=== PATIENT | male | born 1945 | race Caucasian/White ===

== ENCOUNTER 2017-06-02 20:02 | Inpatient (IN) | payer MEDICARE ==
[~2017-06-02] VITALS: Ht 175.3 cm; Wt 153.1 kg
[~2017-06-02 20:02] MED LIST: AMLO1TAB15 PO; AMLO25PO MC; ASPI-484 PO; CANA300T PO; CIPR500T86 PO; CLOP75TA52 PO; DULO60CA7 PO; FURO-81 PO; GLIM2TAB2 PO; INSU100C SQ; INSU100V13 SQ; LEVO750T25 PO; LISI-410 PO; METO-236 PO; NAPR1TAB25 PO; POTA20TA14 PO; ROSU20TA PO; SENN-25 PO; SITA1TAB7 PO; TRAM50TA PO; VORT10TA2 PO; ZOLP12.52 PO
[2017-06-02 20:15] VITALS: BP 114/74
--- NOTE | 2017-06-02 20:33 | ER.PDOC ---
General Chief Complaint: Flank Pain Stated Complaint: VOMITING, flank pain Time seen by MD: 20:30 Source: patient, family Exam Limitations: no limitations History of Present Illness Initial Comments 71 year old white male with history of kidney stone comes in with right sided flank pain. Started around two hours prior to consult with nausea. Right flank in location with radiation to right anterior abdominal wall. No groin radiation. Pain reminds him of previous kidney stone in the past. No fever, no hematuria Severity/Quality: moderate (09/29) Radiation: RLQ Associated Symptoms: nausea/vomiting Exacerbated by: nothing Relieved By: nothing Allergies: Coded Allergies: No Known Allergies (Unverified , 09/23/16) Home Meds Active Scripts Levofloxacin (LEVAQUIN) 750 Mg Tablet, 1 TAB PO DAILY for 5 Days, #5 TAB 0 Refills Prov:LOIDA MENEZES APRN,ROLL MACHINE OPERATOR 04/17/17 Tramadol Hcl (TRAMADOL HCL) 50 Mg Tablet, 50 MG PO Q6 Y for PAIN, #20 TABLET Prov:TAM VARGAS MD 08/15/16 Potassium Chloride (POTASSIUM CHLORIDE) 20 Meq Tab.er.prt, 1 TAB PO DAILY, #30 TAB 4 Refills Prov:RORY MANNING MD 08/01/16 Furosemide (LASIX) 20 Mg Tablet, 40 MG PO DAILY, #30 4 Refills Prov:RORY MANNING MD 08/01/16 Reported Medications Clopidogrel Bisulfate (PLAVIX) 75 Mg Tablet, 1 TAB PO DAILY, #30 TAB 4 Refills 09/26/16 Aspirin (ASPIR 81) 81 Mg Tablet.dr, 1 TAB PO DAILY, #30 TAB 5 Refills 09/26/16 Zolpidem Tartrate (AMBIEN CR) 12.5 Mg Tab.mphase, 1 TAB PO HS, #30 TAB 1 Refill 08/14/16 Vortioxetine Hydrobromide (Trintellix) 10 Mg Tablet, 10 MG PO HS, TABLET 08/14/16 Amlodipine/Valsartan (EXFORGE 10-320 MG TABLET) 1 Each Tablet, 1 TAB PO DAILY, # 30 TAB 5 Refills 08/14/16 Metoprolol Succinate (METOPROLOL SUCCINATE) 25 Mg Tab.er.24h, 1 TAB PO DAILY, # 30 TAB 5 Refills 08/14/16 Insulin Detemir (LEVEMIR) 100 Unit/1 Ml Vial, 50 UNIT SQ HS, VIAL 07/12/16 Insulin Lispro (HUMALOG) 100 Unit/1 Ml Cartridge, 10 UNIT SQ TIDM, CARTRIDGE 07/12/16 Sennosides/Docusate Sodium (NIKOLAY-COLACE TABLET) 1 Each Tablet, 2 EACH PO HS, TABLET 07/12/16 Rosuvastatin 20MG (CRESTOR 20MG) 20 Mg Tablet, 1 TAB PO HS, #30 TAB 5 Refills 07/12/16 Duloxetine Hcl (CYMBALTA) 60 Mg Capsule.dr, 1 CAP PO DAILY, #90 CAP 3 Refills 07/12/16 Glimepiride (GLIMEPIRIDE) 2 Mg Tablet, 1 TAB PO DAILY, #30 TAB 5 Refills 07/12/16 Sitagliptin Phos/Metformin Hcl (JANUMET 50-500 MG TABLET) 1 Each Tablet, 1 TAB PO DAILY, #60 TAB 5 Refills 07/12/16 Vital Signs First Vital Signs Date Time Temp Pulse Resp B/P (MAP) Pulse Ox O2 Delivery O2 Flow Rate FiO2 04/16/17 09:32 85 06/02/17 20:05 97.6 18 98 06/02/17 20:15 114/74 (87) Room Air Last Vital Signs Date Time Temp Pulse Resp B/P (MAP) Pulse Ox O2 Delivery O2 Flow Rate FiO2 06/02/17 20:15 97.6 75 18 114/74 (87) 98 Room Air Past Medical History Medical History: cardiac problems, congestive heart failure, diabetes, GERD Surgical History: knee, other Social History Smoking: non-smoker Alcohol Use: none Drug Use: none Constitutional: no symptoms reported EENTM: no symptoms reported Respiratory: shortness of breath, SOB with exertion Cardiovascular: no symptoms reported Gastrointestinal: see HPI Genitourinary: see HPI Musculoskeletal: no symptoms reported Skin: no symptoms reported Psychiatric/Neurological: no symptoms reported Endocrine: no symptoms reported Hematologic/Lymphatic: no symptoms reported Physical Exam General Appearance: No Apparent Distress, WD/WN HEENT: PERRL/EOMI, Normal ENT Inspection, TMs Normal, Pharynx Normal Neck: Non-Tender, Full Range of Motion, Supple, Normal Inspection Respiratory: chest non-tender, lungs clear, normal breath sounds, no respiratory distress, no accessory muscle use Cardiovascular: Normal Peripheral Pulses, Regular Rate, Rhythm, No Gallop, No JVD, No Murmur Gastrointestinal: Normal Bowel Sounds, Non Tender, Soft Back: Normal Inspection, No CVA Tenderness, No Vertebral Tenderness Extremities: Swelling Neurologic/Psychiatric: fruit culler II-XII NML as Tested, No Motor/Sensory Deficits, Alert, Normal Mood/Affect, Oriented x 3 Skin: Normal Color, Warm/Dry Lymphatic: No Adenopathy Progress Progress CT scan results reviewed with patient Consulted Dr. Vargas Recommend admission to hospitalist service. Course Blood Pressure Systolic: 114 Blood Pressure Diastolic: 74 Blood Pressure Mean: 87 Departure Time of Disposition: 22:50 Disposition: 09 ADMITTED INPATIENT Impression: Primary Impression: Pneumonia Additional Impression: Calculus of kidney Condition: Stable Referrals: SHANNEN GARCÍA MD (PCP) PRIMARY CARE PROVIDER Comments Admit to floor Duration or Time Spent with Pa: 45 Problem Qualifiers Primary Impression: Pneumonia Pneumonia type: due to unspecified organism Laterality: right Lung location : lower lobe of lung Qualified Codes: J18.1 - Lobar pneumonia, unspecified organism MALIKA STEVE MD Jun 02, 2017 20:33
[2017-06-02 20:40] LABS: BASOPHIL % 0.2 % (0.0-0.2); EOSINOPHIL # 0.1 10^3/uL (0.0-0.2); EOSINOPHIL % 0.9 % (0.0-5.0); HEMOGLOBIN 12.5 g/dL (13.9-16.3); LYMPHOCYTES # 0.8 10^3/uL (1.0-4.8); LYMPHOCYTES % 6.5 % (24.0-44.0); MEAN CELL HGB 25.2 pg (26-34); MEAN CELL HGB CONCENTRATION 31.7 g/dL (33-37); MEAN CORP VOLUME 79.4 fL (78-100); MEAN PLATELET VOLUME 8.8 fL (7.8-11.0); MONOCYTES # 0.9 10^3/uL (0.3-0.8); MONOCYTES % 6.7 % (5.0-12.0); NEUTROPHILS % 84.8 % (41.0-85.0); RED CELL DISTRIBUTION WIDTH 15.7 % (11.5-14.5); WHITE BLOOD CELL 12.9 10^3/uL (4.5-11.0)
[2017-06-02 20:56] LABS: CALCIUM 8.5 mg/dL (8.4-10.5); CARBON DIOXIDE 27.3 mmol/L (20.0-32)
[2017-06-02 21:10] VITALS: BP 134/68
--- NOTE | 2017-06-02 21:13 | DIREP ---
PROCEDURE:CT ABDOMEN/PELVIS W/O CONTRAST COMPARISON:[facility], CT, CT ABD/PELVIS W/O, 07/11/2016, 01:08 PM. INDICATIONS:kidney stone TECHNIQUE:Axial images were created through the abdomen and pelvis without intravenous contrast material. No oral contrast was administered. The lack of oral contrast limits assessment of the bowel Sagittal and coronal reconstructions were performed from source images. FINDINGS: LUNG BASES:Consolidative airspace disease in the right lung base with large right pleural effusion. Small left effusion. Findings compatible with right basilar pneumonia. LIVER:Nodular contour compatible with cirrhosis. BILIARY:Gallbladder is distended. No evidence of acute cholecystitis. PANCREAS:Normal. No lesion, fluid collection, ductal dilatation, or atrophy. SPLEEN:Mild splenomegaly ADRENALS:Normal. No mass or enlargement. URINARY TRACT:Mild perinephric fat stranding with moderate right hydronephrosis and hydroureter. Nonobstructing caliceal calculi in the right kidney of measuring up to 8 mm diameter. Moderate hydronephrosis is secondary to obstructing 5 mm stone in the distal right ureter. Left renal cyst noted.. No left-sided hydronephrosis. AORTA/VASCULAR:Mild atherosclerosis without aneurysm RETROPERITONEUM:Prominent periaortic lymph node. No mass or definite adenopathy. BOWEL/MESENTERY:Normal. There is no intestinal obstruction, free fluid, free air or mesenteric inflammatory changes. Enlarged upper abdominal lymph nodes, measuring up to 2 cm short axis. Limited assessment of the lymph nodes given lack of IV contrast. ABDOMINAL WALL:Cellulitis versus anasarca of the pannus. Multiple defects in the anterior abdominal wall, without evidence of incarcerated bowel obstruction.. PELVIC ORGANS:Limited assessment due to metallic scatter artifact from bilateral hip prosthetics. BONES:Bilateral hip arthroplasties and multilevel advanced degenerative joint disease. OTHER:Negative. CONCLUSION: 1. Moderate left hydronephrosis and hydroureter with obstructing 5 mm stone in the distal left ureter. 2. Advanced degenerative joint disease of the skeletal structures. 3. Cirrhosis without focal mass lesion. 4. Right basilar pneumonia and consolidation. 5. Large right and small left pleural effusions 6. Cellulitis versus anasarca of the patient's pannus Dictated by: Rafael Huffman DO on 06/02/2017 at 09:03 PM
[2017-06-02] MEDS ORDERED: TORADOL IV STA (21:27)
[2017-06-02] MEDS ORDERED: ROCEPHIN 1,000 MG in NS 100ML 100 ML IV STA (21:30)
[2017-06-02] MEDS ORDERED: NS 100ML 100 ML IV ONE (21:34)
[2017-06-02] MEDS ORDERED: TORADOL ONE (21:35)
[2017-06-02] MEDS ORDERED: ROCEPHIN ONE (21:35)
[2017-06-02 21:57] LABS: BILIRUBIN,URINE NEGATIVE (NEGATIVE); UROBILINOGEN,URINE NORMAL (NEGATIVE)
--- NOTE | 2017-06-02 21:59 | DIREP ---
PROCEDURE:CHEST 1 VIEW COMPARISON:[facility], CR, XRAY CHEST SINGLE VW, 04/15/2017, 01:22 PM. INDICATIONS:pneumonia FINDINGS: LUNGS/PLEURA:There is a moderate size right pleural effusion with infiltrate in the right base. A minimal left pleural effusion is seen. VASCULATURE:The pulmonary vascular markings are increased. CARDIAC:Moderate cardiomegaly is stable. MEDIASTINUM:Normal. No visible mass or adenopathy. BONES:Post surgical changes are seen with a left shoulder arthroplasty. OTHER:Negative. CONCLUSION:Moderate cardiomegaly with mild pulmonary vascular congestion. Infiltrate is seen in the right base with a moderate size right pleural effusion and minimal left pleural effusion. Dictated by: Kyrie Adorno M.D. on 06/02/2017 at 09:56 PM
[2017-06-02 22:06] LABS: APPEARANCE,URINE HAZY (CLEAR); UA COLOR YELLOW (YELLOW)
--- NOTE | 2017-06-02 22:25 | PCM.EKG ---
[facility] Test Date: 2017-06-02 Test Time: 20:12:00 Pat Name: ELLE ACIN Department: Room: Gender: M Draw Tender: TAJ : 1945 Requested By: MALIKA STEVE Order Number: [id number] Reading MD: Measurements Intervals [place] Rate: 67 P: 22 NM: 200 QRS: 32 QRSD: 108 T: 62 QT: 450 QTc: 475 Interpretive Statements Normal sinus rhythm Normal ECG Compared to ECG 04/15/2017 13:22:39 No significant changes Please click the below link to view image of tracing.
[2017-06-02 22:30] VITALS: BP 122/64
--- NOTE | 2017-06-02 22:40 | NUR ---
DR. RODRIGUEZ EPD ON PHONE WITH DR. RODRIGUEZ FOR ADMISSION
[2017-06-02] MEDS ORDERED: NS 250ML 250 ML IV ONE (23:00)
[2017-06-02] MEDS ORDERED: ZITHROMAX 500 MG in NS 250ML 250 ML IV STA (23:00)
[2017-06-02] MEDS ORDERED: VORT20TA2 PO (23:47)
[2017-06-03 00:01] VITALS: BP 155/70
[2017-06-03] MEDS ORDERED: ULTRAM PO PRN (01:30)
[2017-06-03] MEDS ORDERED: SUBLIMAZE IV PRN (02:00)
[2017-06-03] MEDS ORDERED: NORCO 5MG PO PRN (02:00)
[2017-06-03] MEDS ORDERED: ZOFRAN IV PRN (02:00)
--- NOTE | 2017-06-03 02:00 | NUR ---
patient stated that he was hurting earlier , to right flank area medication down stairs has took all pain away at this time , denies any difficulty with voiding, stated earlier today nausea ,but that is gone now, Addendum: 06/03/17 at 0203 by Rosa Young RN RN Amended: Links added.
[2017-06-03 04:23] VITALS: BP 150/79
--- NOTE | 2017-06-03 06:00 | NUR ---
PT BLOOD SUGAR WAS 70 GAVE ORANGE JUICE AND PEANUTBUTTER AND GRAM CRACKERS. DENIES PAIN AT THIS TIME.
--- NOTE | 2017-06-03 06:52 | NUR ---
REPORT RECEIVED REPORT FROM MARCOS CHIU. ASSUMED CARE FOR PATIENT AT THIS TIME.
[2017-06-03 07:16] VITALS: BP 148/55
[2017-06-03] MEDS: HUMALOG SQ SCH ×3 (08:00→17:07)
[2017-06-03] MEDS: TRADJENTA PO SCH (08:51)
[2017-06-03] MEDS: AMARYL PO SCH (08:53)
[2017-06-03] MEDS: LASIX PO SCH (08:59)
[2017-06-03] MEDS: DIOVAN PO SCH (08:59)
[2017-06-03] MEDS: NORVASC PO SCH (09:00)
[2017-06-03] MEDS: PLAVIX PO SCH (09:00)
[2017-06-03] MEDS: TOPROL XL PO SCH (09:00)
[2017-06-03] MEDS: KLOR-CON 10 PO SCH (09:00)
[2017-06-03] MEDS: ASPIRIN EC PO SCH (09:00)
[2017-06-03] MEDS: GLUCOPHAGE XR PO SCH (09:00)
--- NOTE | 2017-06-03 10:38 | NUR ---
STATUS PATIENTS SPOUSE AT BEDSIDE. PATIENT RESTING PEACEFULLY WITH EYES CLOSED. NO S/S OF RESPIRATORY DISTRESS. RESPIRATIONS EQUAL, NON-LABORED. NO NEEDS VOICED AT THIS TIME, WILL CONTINUE TO MONITOR PATIENT.
[2017-06-03 11:48] VITALS: BP 147/67
--- NOTE | 2017-06-03 13:30 | NUR ---
DISCHARGE PLAN CM VISITED WITH PATIENT'S SIGNIFICANT OTHER AND DAUGHTER IN LAW ABOUT DISCHARGE PLAN AND NEEDS. PATIENT LIVES AT HOME WITH HIS SIGNIFICANT OTHER. PATIENT CURRENTLY HAS AN ADVOCATE NURSE THROUGH [facility]. HOME O2 AND CPAP ALREADY IN PLACE THROUGH [facility]. PATIENT HAS A WALKER AND A SHOWER CHAIR AT HOME. FAMILY STATED THAT THE PATIENT IS HAVING TROUBLE GETTING OUT OF BED AND WOULD LIKE SOME DME THAT COULD HELP WITH THAT. CASE MANAGEMENT REACHED OUT TO MARIYA KENNEDY PT AND KAREEM AT [facility] TO ASSIST IN FINDING APPROPRIATE DME. DISCHARGE GOAL IS TO DISCHARGE BACK HOME WITH SIGNIFICANT OTHER. WILL CONTINUE TO MONITOR DISCHARGE NEEDS.
[2017-06-03 16:00] VITALS: BP 147/60
[2017-06-03 20:32] VITALS: BP 159/77
[2017-06-03] MEDS ORDERED: AMBIEN PO SCH (21:00)
[2017-06-03] MEDS: LIPITOR PO SCH (21:13)
[2017-06-03] MEDS: AMBIEN PO SCH (21:13)
[2017-06-03] MEDS: LANTUS SQ SCH (21:16)
[2017-06-03] MEDS ORDERED: TRINTELLIX PO ONE (21:28)
[2017-06-03] MEDS: TRINTELLIX PO SCH (21:51)
[2017-06-04] VITALS: BP 187/88
[2017-06-04 05:27] LABS: BASOPHIL % 0.2 % (0.0-0.2); EOSINOPHIL # 0.2 10^3/uL (0.0-0.2); EOSINOPHIL % 2.3 % (0.0-5.0); HEMOGLOBIN 11.9 g/dL (13.9-16.3); LYMPHOCYTES # 1.7 10^3/uL (1.0-4.8); LYMPHOCYTES % 16.7 % (24.0-44.0); MEAN CELL HGB 25.1 pg (26-34); MEAN CELL HGB CONCENTRATION 31.2 g/dL (33-37); MEAN CORP VOLUME 80.4 fL (78-100); MEAN PLATELET VOLUME 9.3 fL (7.8-11.0); MONOCYTES % 9.5 % (5.0-12.0); NEUTROPHIL # 7.2 10^3/uL (1.8-7.7); NEUTROPHILS % 70.5 % (41.0-85.0); RED CELL DISTRIBUTION WIDTH 15.8 % (11.5-14.5); WHITE BLOOD CELL 10.2 10^3/uL (4.5-11.0)
[2017-06-04 05:50] LABS: CARBON DIOXIDE 28.8 mmol/L (20.0-32)
[2017-06-04 05:55] VITALS: BP 173/71
[2017-06-04] MEDS: HUMALOG SQ SCH ×3 (08:00→18:00)
[2017-06-04 08:27] VITALS: BP 171/74
[2017-06-04] MEDS: TOPROL XL PO SCH (08:34)
[2017-06-04] MEDS: DIOVAN PO SCH (08:34)
[2017-06-04] MEDS: ASPIRIN EC PO SCH (08:35)
[2017-06-04] MEDS: NORVASC PO SCH (08:35)
[2017-06-04] MEDS: PLAVIX PO SCH (08:35)
[2017-06-04] MEDS: LASIX PO SCH (08:35)
[2017-06-04] MEDS: KLOR-CON 10 PO SCH (08:36)
[2017-06-04] MEDS: TRADJENTA PO SCH (08:36)
[2017-06-04] MEDS: GLUCOPHAGE XR PO SCH (09:00)
[2017-06-04] MEDS: AMARYL PO SCH (09:00)
[2017-06-04 11:35] VITALS: BP 156/66
[2017-06-04 15:21] VITALS: BP 152/63
[2017-06-04] MEDS ORDERED: LEVAQUIN 100 ML IV ONE (15:30)
[2017-06-04 20:00] VITALS: BP 170/77
[2017-06-04] MEDS: LANTUS SQ SCH (21:24)
[2017-06-04] MEDS: AMBIEN PO SCH (21:24)
[2017-06-04] MEDS: LIPITOR PO SCH (21:25)
[2017-06-04] MEDS: TRINTELLIX PO SCH (21:25)
--- NOTE | 2017-06-04 21:45 | NUR ---
insulin pt refused the 50 units of lantus states that he takes 25 units when his blood glucose is below 200. pt given the 25 units.
--- NOTE | 2017-06-04 23:40 | NUR ---
positive blood cultures lab called with results, positive blood cultures, gram pos rods. notified Dr. Mcdonald. no new orders received
[2017-06-05] MEDS: HUMALOG SQ SCH ×3 (08:00→17:37)
[2017-06-05] MEDS: AMARYL PO SCH (08:45)
[2017-06-05] MEDS: GLUCOPHAGE XR PO SCH (08:46)
[2017-06-05] MEDS: PLAVIX PO SCH (08:50)
[2017-06-05] MEDS: KLOR-CON 10 PO SCH (08:50)
[2017-06-05] MEDS: DIOVAN PO SCH (08:51)
[2017-06-05] MEDS: ASPIRIN EC PO SCH (08:51)
[2017-06-05] MEDS: TOPROL XL PO SCH (08:51)
[2017-06-05] MEDS: TRADJENTA PO SCH (08:51)
[2017-06-05] MEDS: NORVASC PO SCH (08:52)
[2017-06-05] MEDS: LASIX PO SCH (08:52)
[2017-06-05 09:11] VITALS: BP 183/82
--- NOTE | 2017-06-05 10:51 | HPH ---
ADMIT DATE: 06/03/2017 CHIEF COMPLAINT: Vomiting and flank pain. HISTORY OF PRESENT ILLNESS: The patient is a morbidly obese 71-year-old gentleman with past medical history significant for diabetes mellitus type 2, hypertension, coronary artery disease, congestive heart failure, diastolic dysfunction, GERD, obstructive sleep apnea, prior history of nephrolithiasis. He presented to the ER with complaints of right flank pain, nausea, vomiting. He also had some shortness of breath. Symptoms started about 2 hours prior to presentation to ER. Right flank pain was in the right anterior wall. He has had prior history of kidney stones. He states the pain did feel very much like a prior kidney stone. He denied any blood noted in the urine. He has had prior history of renal stones and urologic procedures performed. Workup in the ER did reveal a 5 mm stone with some obstructive uropathy. Urology was consulted. PAST MEDICAL HISTORY: Includes hypertension, coronary artery disease, diabetes mellitus type 2, hyperlipidemia, morbid obesity, obstructive sleep apnea, congestive heart failure and diastolic dysfunction. PAST SURGICAL HISTORY: He has had PTCA with stents placed, hip surgery, knee surgery and shoulder surgery. ALLERGIES: NO KNOWN DRUG ALLERGIES. CURRENT HOME MEDICATIONS: List includes amlodipine-valsartan 10/320 mg daily, aspirin 81 mg daily, Plavix 75 mg daily, Lasix 40 mg daily, glimepiride 2 mg daily, Levemir 50 units at night, premeal insulin, metoprolol succinate 25 mg daily, potassium 20 mEq daily, Crestor 20 mg daily, Janumet 50/500 mg daily, tramadol p.r.n. for pain, Trintellix 20 mg at night and Ambien as needed for insomnia. SOCIAL HISTORY: Lives at home. Denies any current alcohol, tobacco or illicit drug use history. FAMILY HISTORY: Negative for early coronary artery disease or diabetes. REVIEW OF SYSTEMS: CARDIAC: Denies chest pain, some shortness of breath and dyspnea on exertion. PULMONARY: Mild cough, nonproductive. No pleuritic chest pain. GASTROINTESTINAL: Positive nausea and vomiting. No diarrhea or constipation. All else negative in 10 point review of system except as in HPI. PHYSICAL EXAMINATION: VITAL SIGNS: Upon arrival to the ER, height 175.2 cm, weight 154.7 kilograms, temperature 97.6, pulse 75, respiratory rate 18, blood pressure 114/74 and O2 saturation 98% on room air and BMI 50.4. GENERAL: He is alert, in no acute distress at time of exam. Morbidly obese gentleman. HEENT: Pupils equal, round, reactive to light. Sclerae are anicteric. Oropharynx is clear. Mucous membranes are moist. NECK: Supple, no lymphadenopathy. CARDIOVASCULAR: At time of exam was regular rate and rhythm. LUNGS: Clear bilaterally. Decreased at bases, right greater than left. ABDOMEN: Soft, obese. Bowel sounds are present. Nontender to palpation. EXTREMITIES: No cyanosis, clubbing. He has trace lower extremity edema. NEUROLOGIC: Grossly nonfocal. LABORATORY DATA: CBC: White count 12.9, hemoglobin 12.5 and platelets 200. Differential: 85% neutrophils, 6% lymphocytes, 7% monocytes. Sodium is 143, potassium 3.4, chloride 107, CO2 is 27, BUN 19, creatinine 1.2, glucose is 144, calcium is 8.5, total bilirubin 0.7, AST 17, ALT is 10, alkaline phosphatase 74, total protein 6.2, albumin 2.5, PT of 10.4, PTT 27.1. UA, pH is 6.5, specific gravity 1.010, 500 mg/dL protein, all else is essentially negative. Lactate of 1.3. IMAGING STUDIES: Chest x-ray performed in the Emergency Room did reveal right basilar infiltrate with moderate size right pleural effusion. Abdomen and pelvis CT did reveal a right base infiltrate, moderate left hydronephrosis and hydroureter, large right and small left pleural effusion with some edema in his pannus. ASSESSMENT AND PLAN: The patient is a 71-year-old man here with nephrolithiasis with hydroureter, hydronephrosis with a 5 mm stone on the left with right basilar infiltrate with community-acquired pneumonia, obstructive sleep apnea with acute hypoxemic respiratory failure and multiple other medical problems. 1. We will continue IV antibiotics started in the Emergency Room. 2. Oxygen protocol, CPAP at night. 3. Continue his cardiovascular medications. 4. ADA diet, sliding scale insulin, Accu-Cheks a.c. and at bedtime. 5. Appropriate p.r.n. pain and nausea medication. 6. Urology consult. Stone should pass, but we will consult Urology. 7. DVT prophylaxis. Due to possibility of having the urologic procedure, we will hold off on anticoagulation at this point. If he stays in the hospital past that and has a urologic procedure, we will consider SCDs. Early ambulation is encouraged. Time spent on 06/03/2017 is 45 minutes. This plan was discussed with the patient. He is his own decision maker. He does understand and concur with plans. Melvin Mcdonald MD DR: ERNST/madonna JOB# [id number]
[2017-06-05 11:16] VITALS: BP 168/74
--- NOTE | 2017-06-05 12:30 | NUR ---
Pt complains of pain in stomach and states he has not had a bowel movement since 06/02/17. Pt states he just does not feel good. Notified Dr. Mcdonald. New orders received. Adm Lactulose as ordered per Dr. Mcdonald. Will continue to monitor Addendum: 06/05/17 at 1748 by Manolo Mancia LVN-Med Surg SLIP CASTER BS active X4 quadrants
[2017-06-05] MEDS ORDERED: LACT10SO PO (14:43)
[2017-06-05] MEDS ORDERED: LEVO500T51 PO (14:43)
--- NOTE | 2017-06-05 15:01 | NUR ---
Pt states that he had a bowel movement, and that it was medium in size. Pt states that he no longer feels pain and that he feels much better. Pt has no more questions or concerns @ this time. Will continue to monitor
[2017-06-05] MEDS ORDERED: CEPHULAC PO SCH (16:00)
--- NOTE | 2017-06-05 16:02 | NUR ---
Pt complains of generalized pain. States pain is 4/10 and requested his PRN Tramadol. Adm his Tramadol as ordered. Will continue to monitor
--- NOTE | 2017-06-05 18:56 | NUR ---
report received report from offgoing shift
[2017-06-05 20:07] VITALS: BP 183/90
[2017-06-05] MEDS: TRINTELLIX PO SCH (20:45)
[2017-06-05] MEDS: LIPITOR PO SCH (20:45)
[2017-06-05] MEDS: AMBIEN PO SCH (20:46)
[2017-06-05] MEDS: LANTUS SQ SCH (20:48)
[2017-06-06 00:32] VITALS: BP 179/71
--- NOTE | 2017-06-06 02:21 | NUR ---
monitor pt asleep. Pt wearing his CPAP. No s/sx of any distress. Call light placed within reach. Will continue to monitor.
--- NOTE | 2017-06-06 03:03 | PNH ---
DATE: 06/04/2017 SUBJECTIVE: He is feeling a little bit better. He believes his stone has passed. He was seen by Urology who agrees the ureteral stone has passed. No other acute changes. OBJECTIVE: VITAL SIGNS: T-max last 24 hours 99.3, pulse 71, respiratory rate is 19, blood pressure 152/63, O2 saturation 94% on 2 liters. GENERAL: He is alert, in no acute distress at time of exam. HEENT: Pupils equal, round, reactive to light. Sclerae are anicteric. Oropharynx is clear. Mucous membranes are moist. NECK: Supple, no lymphadenopathy. CARDIOVASCULAR: At time of exam was regular rate and rhythm. LUNGS: Decreased at bases bilaterally, right greater than left. ABDOMEN: Soft, obese. Bowel sounds are present. EXTREMITIES: No cyanosis, clubbing or significant edema. NEUROLOGIC: Grossly nonfocal. LABORATORY DATA: Sodium 146, potassium 3.3, chloride 105, CO2 is 29, BUN 22, creatinine 1.23, glucose is 102, calcium is 9.0. CBC: White count 10.2, hemoglobin 11.9 and platelets 232. Differential: 70% neutrophils, 17% lymphocytes, 9% monocytes. ASSESSMENT AND PLAN: The patient is a 71-year-old man here with right basilar community-acquired pneumonia, obstructive sleep apnea on CPAP with acute hypoxemic respiratory failure, anemia due to chronic disease. 1. Continue IV antibiotics. 2. O2 protocol. Wean as tolerated. 3. Continue his cardiovascular medications. 4. Continue ADA diet, sliding scale insulin, Accu-Cheks a.c. and at bedtime. 5. It does not appear there will be any intervention from Urology as the stone has likely passed. We will follow clinically. Time spent on 06/04/2017 is 25 minutes. Melvin Mcdonald MD DR: ERNST/madonna JOB# [id number]
[2017-06-06 05:30] VITALS: BP 148/56
[2017-06-06 06:18] LABS: BASOPHIL % 0.3 % (0.0-0.2); EOSINOPHIL # 0.2 10^3/uL (0.0-0.2); EOSINOPHIL % 2.6 % (0.0-5.0); HEMOGLOBIN 10.8 g/dL (13.9-16.3); LYMPHOCYTES # 1.2 10^3/uL (1.0-4.8); LYMPHOCYTES % 16.3 % (24.0-44.0); MEAN CELL HGB 25.1 pg (26-34); MEAN CELL HGB CONCENTRATION 31.1 g/dL (33-37); MEAN CORP VOLUME 80.7 fL (78-100); MEAN PLATELET VOLUME 9.4 fL (7.8-11.0); MONOCYTES # 0.7 10^3/uL (0.3-0.8); NEUTROPHIL # 5.1 10^3/uL (1.8-7.7); NEUTROPHILS % 70.8 % (41.0-85.0); RED CELL DISTRIBUTION WIDTH 15.5 % (11.5-14.5); WHITE BLOOD CELL 7.2 10^3/uL (4.5-11.0)
--- NOTE | 2017-06-06 06:40 | NUR ---
BEDSIDE REPORT RECEIVED REPORT FROM MICHELLE CORNEJO. ASSUMED CARE FOR PATIENT AT THIS TIME.
--- NOTE | 2017-06-06 06:53 | NUR ---
report report given to o/c shift
[2017-06-06 06:55] LABS: CALCIUM 8.3 mg/dL (8.4-10.5); CARBON DIOXIDE 30.1 mmol/L (20.0-32)
[2017-06-06] MEDS: HUMALOG SQ SCH (08:00)
[2017-06-06 08:12] VITALS: BP 159/80
[2017-06-06] MEDS: NORVASC PO SCH (08:18)
[2017-06-06] MEDS: ASPIRIN EC PO SCH (08:18)
[2017-06-06] MEDS: LASIX PO SCH (08:19)
[2017-06-06] MEDS: DIOVAN PO SCH (08:19)
[2017-06-06] MEDS: KLOR-CON 10 PO SCH (08:19)
[2017-06-06] MEDS: TOPROL XL PO SCH (08:19)
[2017-06-06] MEDS: PLAVIX PO SCH (08:19)
[2017-06-06] MEDS: TRADJENTA PO SCH (08:21)
[2017-06-06] MEDS: GLUCOPHAGE XR PO SCH (08:21)
[2017-06-06] MEDS: AMARYL PO SCH (08:21)
--- NOTE | 2017-06-06 09:50 | NUR ---
AT BEDSIDE TO DISCUSS DISCHARGE PLAN
--- NOTE | 2017-06-06 09:59 | PRM.DC ---
Discharge Summary Date of Discharge: Jun 06, 2017 Reason for Visit: Flank pain Patient History: Alzheimer's disease 33 FATHER, , Age:68 Aneurysm G8 BROTHER, , Age:78 Cerebrovascular disorder 32 MOTHER, , Age:60 Chronic obstructive pulmonary disease G8 SISTER, , Age:73 Congestive heart failure 33 FATHER, , Age:68 G8 BROTHER, , Age:78 Coronary artery disease 33 FATHER, , Age:68 G8 BROTHER, , Age:78 G8 SISTER, , Age:27 Diabetes mellitus 32 MOTHER, , Age:60 G8 BROTHER, , Age:78 19 CHILD Hypertension G8 BROTHER, , Age:78 Hypoglycemia G8 SISTER, , Age:73 Liver failure G8 SISTER, , Age:27 History Present Illness: (1) OSIRIS on CPAP SEVERITY: MODERATE PERSISTENT Status: Chronic ICD Code: G47.33 - Obstructive sleep apnea (adult) (pediatric); Z99.89 - Dependence on other enabling machines and devices SNOMED: 53819288, 394601929 Assessment & Plan: CPAP at night with oxygen supplementation (2) Pneumonia Status: Acute ICD Code: J18.9 - Pneumonia, unspecified organism SNOMED: 313748870 Assessment & Plan: Continue oral antibiotics at home (3) Ureterolithiasis Status: Resolved ICD Code: N20.1 - Calculus of ureter SNOMED: 18878407 (4) DM2 (diabetes mellitus, type 2) Status: Chronic ICD Code: E11.9 - Type 2 diabetes mellitus without complications SNOMED: 56191538 Assessment & Plan: ADA diet, continue current medical management (5) Heart failure SEVERITY: MODERATE PERSISTENT Status: Chronic ICD Code: I50.9 - Heart failure, unspecified SNOMED: 47894161 Assessment & Plan: Continue current medical management General: Alert, Oriented X3, Cooperative, No acute distress HEENT: PERRLA, EOMI Neck: Supple, No JVD Lungs: Clear to auscultation, Normal air movement Heart: Regular rate, Normal S1, Normal S2 Abdomen: Normal bowel sounds, Soft, No tenderness Extremities: No clubbing, No cyanosis Skin: No breakdown Neuro: Normal speech, Strength at 5/5 X4 ext, Cranial nerves 3-12 NL Psych/Mental Status: Mental status NL, Mood NL Results(Labs/Rad) Laboratory Tests Test 06/06/17 05:41 White Blood Count 7.2 10^3/uL Red Blood Count 4.30 10^6/uL Hemoglobin 10.8 g/dL Hematocrit 34.7 % Mean Corpuscular Volume 80.7 fL Mean Corpuscular Hemoglobin 25.1 pg Mean Corpuscular Hemoglobin Concent 31.1 g/dL Red Cell Distribution Width 15.5 % Platelet Count 202 10^3/uL Mean Platelet Volume 9.4 fL Neutrophils (%) (Auto) 70.8 % Lymphocytes (%) (Auto) 16.3 % Monocytes (%) (Auto) 9.0 % Neutrophils # (Auto) 5.1 10^3/uL Lymphocytes # (Auto) 1.2 10^3/uL Monocytes # (Auto) 0.7 10^3/uL Absolute Immature Granulocyte (auto 0.07 10^3 u/L Eosinophils % 2.6 % Basophils % 0.3 % Basophils # 0.0 10^3/uL Eosinophil Count 0.2 10^3/uL Sodium Level 144 mmol/L Potassium Level 3.2 mmol/L Chloride Level 106.0 mmol/L Carbon Dioxide Level 30.1 mmol/L Glucose Level 124 mg/dL Blood Urea Nitrogen 21 mg/dL Creatinine 1.19 mg/dL Calcium Level 8.3 mg/dL Anion Gap 11.1 Estimated GFR () 72.9 BUN/Creatinine Ratio 17.0 Percent Immature Gran (Cell Imm) 1.00 % Scheduled Amlodipine/Valsartan (Exforge 10-320 Mg Tablet), 1 TAB PO DAILY, (Reported) Aspirin (Aspir 81), 1 TAB PO DAILY, (Reported) Clopidogrel Bisulfate (Plavix), 1 TAB PO DAILY, (Reported) Furosemide (Lasix), 40 MG PO DAILY Glimepiride (Glimepiride), 1 TAB PO DAILY, (Reported) Insulin Detemir (Levemir), 50 UNIT SQ HS, (Reported) Insulin Lispro (Humalog), 10 UNIT SQ TIDM, (Reported) Lactulose (Lactulose), 20 GM PO Q4HR Levofloxacin (Levaquin), 1 TAB PO DAILY Levofloxacin (Levaquin), 500 MG PO DAILY24 Metoprolol Succinate (Metoprolol Succinate), 1 TAB PO DAILY, (Reported) Potassium Chloride (Potassium Chloride), 1 TAB PO DAILY Rosuvastatin 20MG (Crestor 20MG), 1 TAB PO HS, (Reported) Sitagliptin Phos/Metformin Hcl (Janumet 50-500 Mg Tablet), 1 TAB PO DAILY, ( Reported) Vortioxetine Hydrobromide (Trintellix), 20 MG PO HS, (Reported) Zolpidem Tartrate (Ambien Cr), 1 TAB PO HS, (Reported) Scheduled PRN Tramadol Hcl (Tramadol Hcl), 50 MG PO Q6 PRN for PAIN Discontinued Medications Duloxetine Hcl (Cymbalta), 1 CAP PO DAILY, (Reported) Discontinued Reason: Discontinue Sennosides/Docusate Sodium (Ladi-Colace Tablet), 2 EACH PO HS, (Reported) Discontinued Reason: Discontinue Vortioxetine Hydrobromide (Trintellix), 10 MG PO HS, (Reported) Discontinued Reason: Discontinue Sepsis Evaluation @ Discharge Course Blood Pressure Systolic: 159 Blood Pressure Diastolic: 80 Blood Pressure Mean: 106 Notes see dictated report Plan Discharge Date: Jun 06, 2017 Dicharge DX: 1. Pneumonia, 2. Ureterolithiasis with hydronephrosis, 3. OSIRIS on CPAP Discharge Disposition: Stable Plan Medications per discharge list CPAP at night Oxygen supplementation with nasal cannula and CPAP at night ADA diet Activity as tolerated Follow up with Dr Doran 1-2 weeks Discharge plans discussed with patient, he is his own decision maker and does understand and concur with plans Time spent 25 minutes Problem Qualifiers (1) Pneumonia: Pneumonia type: due to unspecified organism Laterality: right Lung location : lower lobe of lung Qualified Codes: J18.1 - Lobar pneumonia, unspecified organism (2) DM2 (diabetes mellitus, type 2): Diabetes mellitus fpc insulin use: with terminal makeup operator use Diabetes mellitus complication status: without complication Qualified Codes: E11.9 - Type 2 diabetes mellitus without complications; Z79.4 - jail (current) use of insulin (3) Heart failure: Heart failure type: diastolic ZAHIRA RODRIGUEZ MD Jun 06, 2017 09:58
[2017-06-06 10:03] VITALS: BP 159/80
--- NOTE | 2017-06-06 10:05 | NUR ---
DISCHARGE PATIENT BEING DISCHARGED HOME AT THIS TIME WITH HIS PERSONAL CPAP DEVICE. PATIENT IS STABLE, RESPIRATIONS EVEN, NON-LABORED. PATIENT STATES THAT HIS SPOUSE HELPS WITH HIS CARE AT HOME. DENIES NEEDING ADDITIONAL RESOURCES AT THIS TIME. RELINQUISHED CARE FOR PATIENT.
--- NOTE | 2017-06-07 19:22 | DSH ---
DATE OF DISCHARGE: 06/06/2017 DISPOSITION: Routine discharge home. PRINCIPAL DIAGNOSES AT DISCHARGE: Includes ureterolithiasis with hydronephrosis. OTHER DIAGNOSES: Includes right basilar pneumonia, obstructive sleep apnea, acute on chronic hypoxic respiratory failure and anemia due to chronic disease. BRIEF SUMMARY: The patient was initially admitted on 06/02/2017 with flank pain. Workup revealed he had ureterolithiasis with hydronephrosis with a 5 mm stone. Urology was consulted. Prior to being seen, it was clearly evident the stone had passed. He also had a right basilar pneumonia. He was started on IV antibiotics. He had sleep apnea and he uses CPAP in the hospital and oxygen protocol. Over the next few days, he did improve towards baseline. On day of discharge, he was tolerating diet well. He was back at baseline. Routine discharge home. DISCHARGE MEDICATIONS: He will resume his previous home medications plus lactulose as needed for constipation and Levaquin 500 mg daily for 5 more days. DISCHARGE ACTIVITY: As tolerated. DISCHARGE INSTRUCTIONS: Discharged on CPAP and oxygen as prior to admission. Discharge plans were discussed with the patient. He is his own decision maker. He does understand and concur with plans. Time spent on discharge 25 minutes. Melvin Mcdonald MD DR: ERNST/madonna JOB# [id number]
--- NOTE | 2017-06-08 05:45 | PNH ---
DATE: 06/05/2017 SUBJECTIVE: The patient stated that he felt well. He has not had a bowel movement. There is no other new changes. Due to his concerns of not feeling well, he was given lactulose x 1, had significant bowel movement. No other acute changes overnight. OBJECTIVE: VITAL SIGNS: T-max last 24 hours is 98.7, pulse of 67, respiratory rate is 18, blood pressure 183/90 and O2 saturation 96% on 2 liters nasal cannula. GENERAL: He is alert, in no acute distress at time of exam. Morbidly obese gentleman. HEENT: Pupils equal, round, reactive to light. Sclerae are anicteric. Oropharynx is clear. Mucous membranes are moist. NECK: Supple, no lymphadenopathy. CARDIOVASCULAR: At time of exam is regular rate and rhythm. LUNGS: Clear bilaterally. ABDOMEN: Soft. Bowel sounds are present. Obese, nontender to palpation. EXTREMITIES: No cyanosis, clubbing or significant edema. NEUROLOGIC: Grossly nonfocal. ASSESSMENT AND PLAN: The patient is a 71-year-old man here with resolved nephrolithiasis with obstructive sleep apnea with acute hypoxic respiratory failure with right basilar pneumonia. 1. Continue IV fluids. 2. He received lactulose for catharsis and had a bowel movement. 3. O2 protocol. 4. ADA diet. Time spent with the patient on 06/05/2017 is 25 minutes. Melvin Mcdonald MD DR: ERNST/madonna JOB# [id number]
== END 2017-06-06 10:17 | disposition home or self-care (01) | DRG 693 ==
LOC: ER 20:02 → EDBD 20:02 → MS 23:02 → EDPENDDISDT 06-03 23:40 → EDPENDDISTM 06-03 23:40 → EDPENDDISDT 06-06 10:04 → EDPENDDISTM 06-06 10:04
PROVIDERS: ADMIT Internal Medicine; ATTEND Internal Medicine
PROC: 5A09357 Assistance with Respiratory Ventilation, Less than 24 Consecutive Hours, Continuous Positive Airway Pressure (ICD-10-PCS; principal; 2017-06-03)
PROC: 5A09357 Assistance with Respiratory Ventilation, Less than 24 Consecutive Hours, Continuous Positive Airway Pressure (ICD-10-PCS; 2017-06-04)
PROC: 5A09357 Assistance with Respiratory Ventilation, Less than 24 Consecutive Hours, Continuous Positive Airway Pressure (ICD-10-PCS; 2017-06-05)
PROC: 5A09357 Assistance with Respiratory Ventilation, Less than 24 Consecutive Hours, Continuous Positive Airway Pressure (ICD-10-PCS; 2017-06-06)
DX: N13.2 Hydronephrosis with renal and ureteral calculous obstruction (principal); J96.21 Acute and chronic respiratory failure with hypoxia; J18.9 Pneumonia, unspecified organism; I11.0 Hypertensive heart disease with heart failure; D63.8 Anemia in other chronic diseases classified elsewhere; E11.9 Type 2 diabetes mellitus without complications; E66.01 Morbid (severe) obesity due to excess calories; I50.30 Unspecified diastolic (congestive) heart failure; Z68.43 Body mass index [BMI] 50.0-59.9, adult; G47.33 Obstructive sleep apnea (adult) (pediatric); E78.5 Hyperlipidemia, unspecified; K21.9 Gastro-esophageal reflux disease without esophagitis; I25.10 Atherosclerotic heart disease of native coronary artery without angina pectoris; Z79.2 Long term (current) use of antibiotics; Z79.82 Long term (current) use of aspirin; Z79.4 Long term (current) use of insulin; Z79.899 Other long term (current) drug therapy; Z87.442 Personal history of urinary calculi; Z82.0 Family history of epilepsy and other diseases of the nervous system; Z82.3 Family history of stroke; Z82.5 Family history of asthma and other chronic lower respiratory diseases; Z82.49 Family history of ischemic heart disease and other diseases of the circulatory system; Z83.3 Family history of diabetes mellitus
CPT/HCPCS: 36415; 36600; 71045; 74176; 80048; 80053; 81000; 82948; 83605; 85025; 85610; 85730; 87040; 87086; 93005; 96365; 99285; J0456; J0696; J1815; J1885; J1956; J2405; J3480; J3490; J7050

== ENCOUNTER 2017-07-03 14:28 | Inpatient (IN) | payer MEDICARE ==
[~2017-07-03] VITALS: Ht 175.3 cm; Wt 152.5 kg
[~2017-07-03 14:28] MED LIST changes: +LACT10SO PO; +LEVO500T51 PO; +VORT20TA2 PO
[2017-07-03] MEDS ORDERED: DECADRON IH STA (14:38)
[2017-07-03] MEDS ORDERED: DUONEB 0.5 MG-3 MG/3 ML SOLN IH STA (14:38)
[2017-07-03] MEDS ORDERED: LASIX IV STA (14:38)
[2017-07-03] MEDS ORDERED: SOLU-MEDROL IV STA (14:38)
--- NOTE | 2017-07-03 14:38 | ER.PDOC ---
General Chief Complaint: Requesting Medical Care Stated Complaint: RESPIRATORY DISTRESS Time seen by MD: 15:00 Source: patient History of Present Illness Associated Symptoms: edema Prior symptoms/Treatment: Similar symptoms previous Allergies: Coded Allergies: No Known Allergies (Unverified , 09/23/16) Home Meds Active Scripts Lactulose (LACTULOSE) 10 Gm/15 Ml Solution, 20 GM PO Q4HR for CONSTIPATION for 30 Days, #960 ML Prov:ZAHIRA RODRIGUEZ MD 06/05/17 Levofloxacin (LEVAQUIN) 500 Mg Tablet, 500 MG PO DAILY24 for 5 Days, #5 TABLET Prov:ZAHIRA RODRIGUEZ MD 06/05/17 Tramadol Hcl (TRAMADOL HCL) 50 Mg Tablet, 50 MG PO Q6 Y for PAIN, #20 TABLET Prov:TAM VARGAS MD 08/15/16 Potassium Chloride (POTASSIUM CHLORIDE) 20 Meq Tab.er.prt, 1 TAB PO DAILY, #30 TAB 4 Refills Prov:RORY MANNING MD 08/01/16 Furosemide (LASIX) 20 Mg Tablet, 40 MG PO DAILY, #30 4 Refills Prov:RORY MANNING MD 08/01/16 Reported Medications Vortioxetine Hydrobromide (Trintellix) 20 Mg Tablet, 20 MG PO HS, TABLET 06/02/17 Clopidogrel Bisulfate (PLAVIX) 75 Mg Tablet, 1 TAB PO DAILY, TAB 09/26/16 Aspirin (ASPIR 81) 81 Mg Tablet.dr, 1 TAB PO DAILY, TAB 09/26/16 Zolpidem Tartrate (AMBIEN CR) 12.5 Mg Tab.mphase, 1 TAB PO HS, TAB 08/14/16 Amlodipine/Valsartan (EXFORGE 10-320 MG TABLET) 1 Each Tablet, 1 TAB PO DAILY, TAB 08/14/16 Metoprolol Succinate (METOPROLOL SUCCINATE) 25 Mg Tab.er.24h, 1 TAB PO DAILY, TAB 08/14/16 Insulin Detemir (LEVEMIR) 100 Unit/1 Ml Vial, 50 UNIT SQ HS, VIAL 07/12/16 Insulin Lispro (HUMALOG) 100 Unit/1 Ml Cartridge, 10 UNIT SQ TIDM, CARTRIDGE 07/12/16 Rosuvastatin 20MG (CRESTOR 20MG) 20 Mg Tablet, 1 TAB PO HS, TAB 07/12/16 Glimepiride (GLIMEPIRIDE) 2 Mg Tablet, 1 TAB PO DAILY, TAB 07/12/16 Sitagliptin Phos/Metformin Hcl (JANUMET 50-500 MG TABLET) 1 Each Tablet, 1 TAB PO DAILY, TAB 07/12/16 Past Medical History Medical History: other (CHF) Surgical History: knee, other Family History Significant Family History: no pertinent family hx Social History Smoking: non-smoker Drug Use: none Reviewed Nursing Reviewed: Vital Signs, Abn. 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8-11.0) Neutrophils (%) (Auto) 72.0 % (41.0-85.0) Lymphocytes (%) (Auto) 13.9 % (24.0-44.0) Monocytes (%) (Auto) 10.0 % (5.0-12.0) Neutrophils # (Auto) 8.3 10^3/uL (1.8-7.7) Lymphocytes # (Auto) 1.6 10^3/uL (1.0-4.8) Monocytes # (Auto) 1.2 10^3/uL (0.3-0.8) Absolute Immature Granulocyte (auto 0.16 10^3 u/L (0-2) Eosinophils % 2.4 % (0.0-5.0) Basophils % 0.3 % (0.0-0.2) Basophils # 0.0 10^3/uL (0.0-0.1) Eosinophil Count 0.3 10^3/uL (0.0-0.2) Prothrombin Time 9.9 SEC (9.8-11.9) Prothrombin Time INR (Non-Therap) 1.0 Activated Partial Thromboplast Time 26.3 SEC (24.67-30.72) D-Dimer 1.60 mg/L (0.19-0.49) Sodium Level 143 mmol/L (132-145) Potassium Level 3.5 mmol/L (3.6-5.2) Chloride Level 106.0 mmol/L (96-109) Carbon Dioxide Level 27.3 mmol/L (20.0-32) Anion Gap 13.2 Blood Urea Nitrogen 21 mg/dL (7-18) Creatinine 1.09 mg/dL (0.59-1.40) Estimated GFR () 80.7 (>/=60) BUN/Creatinine Ratio 19.0 Glucose Level 116 mg/dL (70-110) Calcium Level 8.7 mg/dL (8.4-10.5) Total Bilirubin 0.9 mg/dL (0.2-1.0) Aspartate Amino Transf (AST/SGOT) 13 U/L (0-35) Alanine Aminotransferase (ALT/SGPT) 11 U/L (12-78) Alkaline Phosphatase 66 U/L (50-136) Total Creatine Kinase 37 U/L (39-308) Creatine Kinase MB 0.8 ng/mL (0.5-3.6) Troponin I < 0.02 ng/mL (0.00-0.05) Pro-B-Type Natriuretic Peptide 987 pg/mL (0-125) Total Protein 6.2 g/dL (6.4-8.2) Albumin 2.8 g/dL (3.4-5.0) Globulin 3.4 Percent Immature Gran (Cell Imm) 1.40 % (0.00-0.50) Helicobacter pylori Screen NEGATIVE (NEGATIVE) Administered Medications Medications (Trade) Dose Ordered Sig/Kelsi Route PRN Reason Start Time Stop Time Status Last Admin Dose Admin Methylprednisolone Sodium Succinate (Solu-Medrol) 250 mg STAT STAT IV 07/03/17 14:38 07/03/17 14:41 DC 07/03/17 15:28 Albuterol/ Ipratropium (Duoneb 0.5 Mg-3 Mg/3 ml Soln) 3 ml STAT STAT IH 07/03/17 14:38 07/03/17 14:41 DC 07/03/17 15:04 Furosemide (Lasix) 40 mg STAT STAT IV 07/03/17 14:38 07/03/17 14:41 DC 07/03/17 15:28 EKG/XRAY/CT/US EKG: NSR, no ST T wave changes EKG Comments: PAC'S Consult/PCP Time Consult/PCP Called: 16:00 Consult/PCP: DR RODRIGUEZ Departure Time of Disposition: 16:22 Disposition: 09 ADMITTED INPATIENT Impression: Primary Impression: Heart failure Condition: Improved Referrals: SHANNEN GARCÍA MD (PCP) PRIMARY CARE PROVIDER Duration or Time Spent with Pa: 2 HRS GIA OAKES MD Jul 03, 2017 14:38
[2017-07-03 14:41] VITALS: BP 201/102
[2017-07-03 14:46] LABS: BASOPHIL % 0.3 % (0.0-0.2); EOSINOPHIL # 0.3 10^3/uL (0.0-0.2); EOSINOPHIL % 2.4 % (0.0-5.0); HEMOGLOBIN 12.7 g/dL (13.9-16.3); LYMPHOCYTES # 1.6 10^3/uL (1.0-4.8); LYMPHOCYTES % 13.9 % (24.0-44.0); MEAN CELL HGB 25.8 pg (26-34); MEAN CELL HGB CONCENTRATION 32.1 g/dL (33-37); MEAN CORP VOLUME 80.3 fL (78-100); MEAN PLATELET VOLUME 8.9 fL (7.8-11.0); MONOCYTES # 1.2 10^3/uL (0.3-0.8); NEUTROPHIL # 8.3 10^3/uL (1.8-7.7); RED CELL DISTRIBUTION WIDTH 15.5 % (11.5-14.5); WHITE BLOOD CELL 11.6 10^3/uL (4.5-11.0)
--- NOTE | 2017-07-03 14:55 | DIREP ---
PROCEDURE:CHEST 1 VIEW COMPARISON:[facility], CR, XRAY CHEST 2 VWS, 06/11/2017, 03:35 PM. INDICATIONS:dys FINDINGS: LUNGS/PLEURA:Elevation of the right hemidiaphragm is noted consistent with a moderate right pleural effusion. A small left pleural effusion is noted as well. There most likely is compressive atelectasis in the right lung base. VASCULATURE:Pulmonary venous congestion consistent with congestive heart failure is noted. CARDIAC:Moderate cardiomegaly noted. MEDIASTINUM:Normal. No visible mass or adenopathy. BONES:Normal. No fracture or visible bony lesion. OTHER:Negative. CONCLUSION: 1. Cardiomegaly with evidence of congestive heart failure and bilateral pleural effusions (fairly large on the right which is increased in size since 06/11/2017). I believe there is compressive atelectasis in the right lung base. Dictated by: Stanislaw Delaney M.D. on 07/03/2017 at 02:53 PM
[2017-07-03] MEDS ORDERED: DUONEB 0.5 MG-3 MG/3 ML SOLN IH ONE (14:59)
--- NOTE | 2017-07-03 14:59 | PCM.EKG ---
[facility] Test Date: 2017-07-03 Test Time: 14:59:56 Pat Name: ELLE CAIN Department: Room: 330 Gender: M Surgical Asst: BLANCA : 1945 Requested By: GIA OAKES Order Number: [id number] Reading MD: Saji Beaulieu Measurements Intervals [place] Rate: 69 P: 62 W[place]: 182 QRS: 9 QRSD: 88 T: 69 QT: 448 QTc: 480 Interpretive Statements Sinus rhythm with frequent premature ventricular complexes Nonspecific ST and T wave abnormality Prolonged QT Abnormal ECG Compared to ECG 06/02/2017 20:12:00 Ventricular premature complex(es) now present ST (T wave) deviation now present Prolonged QT interval now present Electronically Signed On 07-10-2017 6:20:16 CDT by Saji Beaulieu Please click the below link to view image of tracing.
[2017-07-03] MEDS ORDERED: LASIX ONE (15:13)
[2017-07-03] MEDS ORDERED: SOLU-MEDROL ONE (15:13)
[2017-07-03 15:16] LABS: ALANINE AMINOTRANSFERASE(ML) 11 U/L (12-78); ALKALINE PHOSPHATASE 66 U/L (50-136); ASPARTATE AMINO TRANSFERASE 13 U/L (0-35); CALCIUM 8.7 mg/dL (8.4-10.5); CARBON DIOXIDE 27.3 mmol/L (20.0-32); GLUCOSE 116 mg/dL (70-110)
--- NOTE | 2017-07-03 15:36 | NUR ---
JENNIFER Overton on phone with Dr. Overton
[2017-07-03 15:46] VITALS: BP 188/98
[2017-07-03] MEDS ORDERED: ASPI-484 PO (16:03)
--- NOTE | 2017-07-03 16:06 | NUR ---
pt on unit Pt arrived on unit via wheelchair from ER. Received report and assumed care of pt. Oriented pt to room. Admission completed as charted. Pt denies pain. Vitals WNL. Call light within reach. Family at bedside.
[2017-07-03] MEDS ORDERED: SACU1TAB7 PO ×2 (16:12→16:18)
[2017-07-03] MEDS ORDERED: METO1TAB32 PO (16:18)
[2017-07-03] MEDS ORDERED: INSU100V13 SQ (16:18)
[2017-07-03 16:29] VITALS: BP 186/72
[2017-07-03] MEDS: HUMALOG SQ SCH ×2 (16:55→21:42)
[2017-07-03] MEDS ORDERED: DUONEB 0.5 MG-3 MG/3 ML SOLN IH SCH (18:00)
--- NOTE | 2017-07-03 18:31 | NUR ---
REPORT REPORT RECEIVED FROM TERRY MARTINEZ ASSUMED CARE OF PT
[2017-07-03 19:34] VITALS: BP 151/59
[2017-07-03] MEDS: DUONEB 0.5 MG-3 MG/3 ML SOLN IH SCH (20:58)
--- NOTE | 2017-07-03 22:03 | NUR ---
STATUS PT LYING IN BED WITH EYES CLOSED, RESP EVEN AND NON LABORED. PT WEARING CPAP. NO S/S OF DISTRESS NOTED. WILL CONT TO MONITOR. CALL LIGHT WITHIN REACH. BED LOCKED AND LOW POSITION, SIDE RAILS UP X2.
[2017-07-04 00:08] VITALS: BP 160/76
--- NOTE | 2017-07-04 02:06 | NUR ---
STATUS PT LYING IN BED WITH EYES CLOSED. RESP EVEN AND NON LABORED. CALL LIGHT WITHIN REACH. WILL CONT TO MONITOR. BED LOCKED AND LOW POSITION, SIDE RAILS UP X2.
[2017-07-04 05:31] VITALS: BP 147/73
[2017-07-04] MEDS ORDERED: DEXTROSE 50%-WATER SYRINGE IV PRN (06:00)
[2017-07-04] MEDS ORDERED: ENTRESTO 49 MG-51 MG TABLET PO SCH ×2 (06:00→21:00)
[2017-07-04] MEDS: HUMALOG SQ SCH ×4 (07:30→16:51)
[2017-07-04] MEDS ORDERED: KLOR-CON 10 PO ONE (07:53)
[2017-07-04] MEDS ORDERED: LASIX ONE (07:53)
[2017-07-04] MEDS: LASIX IV SCH (08:05)
[2017-07-04] MEDS: PLAVIX PO SCH (08:05)
[2017-07-04] MEDS: KLOR-CON 10 PO SCH (08:05)
[2017-07-04] MEDS: AMARYL PO SCH (08:06)
[2017-07-04] MEDS: ASPIRIN EC PO SCH (08:06)
[2017-07-04] MEDS: ENTRESTO 49 MG-51 MG TABLET PO SCH (08:26)
[2017-07-04] MEDS: DUONEB 0.5 MG-3 MG/3 ML SOLN IH SCH ×3 (08:27→21:24)
[2017-07-04] MEDS ORDERED: RESTORIL PO PRN (09:00)
[2017-07-04] MEDS ORDERED: ASPIRIN EC PO SCH (09:00)
--- NOTE | 2017-07-04 09:40 | NUR ---
Unable to Sleep Pt requested to speak with this nurse. Upon entering the room, pt found crying sitting on side of bed. When questioned what is wrong pt states, "I did not sleep at all last night. I am so tired. They did not give me the correct bed time medications last night. The doctor is messing up all my medications." Pt request to take ambien now. Educated pt on reason not to take sleeping pill in morning. Pt able to verbalize understanding but still request sleeping medication. Dr. Mcdonald notified. Awaiting new orders.
[2017-07-04] MEDS ORDERED: AMBIEN PO STA (10:13)
[2017-07-04 11:58] VITALS: BP 187/98
[2017-07-04 17:00] VITALS: BP 163/80
--- NOTE | 2017-07-04 18:30 | NUR ---
Report given to welder 2nd shift. Relinquished care of pt
--- NOTE | 2017-07-04 18:30 | NUR ---
REPORT REPORT RECEIVED, ASSUMED CARE OF PT
[2017-07-04 19:20] VITALS: BP 147/85
--- NOTE | 2017-07-04 21:34 | NUR ---
MEDICATIONS PT FAMILY BROUGHT PATIENT MEDICATIONS FROM HOME. MEDICATIONS PLACED IN MED ROOM.
[2017-07-04] MEDS: LANTUS SQ SCH (23:03)
[2017-07-04] MEDS: LIPITOR PO SCH (23:04)
[2017-07-04] MEDS: TRINTELLIX PO SCH (23:04)
[2017-07-04] MEDS: AMBIEN PO SCH (23:04)
[2017-07-05] VITALS (7 sets, daily range): BP systolic 147–195; BP diastolic 66–94
[2017-07-05] MEDS: DUONEB 0.5 MG-3 MG/3 ML SOLN IH SCH ×4 (02:31→21:32)
[2017-07-05] MEDS: HUMALOG SQ SCH ×3 (07:52→18:00)
[2017-07-05 08:25] LABS: BASOPHIL % 0.1 % (0.0-0.2); EOSINOPHIL # 0.2 10^3/uL (0.0-0.2); EOSINOPHIL % 1.4 % (0.0-5.0); HEMOGLOBIN 12.4 g/dL (13.9-16.3); LYMPHOCYTES # 1.8 10^3/uL (1.0-4.8); LYMPHOCYTES % 13.4 % (24.0-44.0); MEAN CELL HGB 25.7 pg (26-34); MEAN CELL HGB CONCENTRATION 32.1 g/dL (33-37); MEAN CORP VOLUME 80.1 fL (78-100); MEAN PLATELET VOLUME 9.6 fL (7.8-11.0); MONOCYTES # 1.2 10^3/uL (0.3-0.8); MONOCYTES % 8.6 % (5.0-12.0); NEUTROPHILS % 74.8 % (41.0-85.0); RED CELL DISTRIBUTION WIDTH 15.7 % (11.5-14.5); WHITE BLOOD CELL 13.4 10^3/uL (4.5-11.0)
[2017-07-05] MEDS: ASPIRIN EC PO SCH (08:41)
[2017-07-05] MEDS: LASIX IV SCH (08:41)
[2017-07-05] MEDS: KLOR-CON 10 PO SCH (08:42)
[2017-07-05] MEDS: PLAVIX PO SCH (08:42)
[2017-07-05] MEDS: ENTRESTO 49 MG-51 MG TABLET PO SCH (08:46)
[2017-07-05] MEDS: AMARYL PO SCH (08:46)
[2017-07-05 08:50] LABS: CALCIUM 8.9 mg/dL (8.4-10.5); CARBON DIOXIDE 27.1 mmol/L (20.0-32)
--- NOTE | 2017-07-05 12:15 | NUR ---
Paulo RODRÍGUEZ notified of pt blood pressure 195/75.
--- NOTE | 2017-07-05 14:23 | HPH ---
ADMIT DATE: 07/04/2017 CHIEF COMPLAINT: Respiratory distress. HISTORY OF PRESENT ILLNESS: The patient is a 71-year-old man with a past medical history significant for obstructive sleep apnea on CPAP therapy at home, morbid obesity, congestive heart failure, diastolic dysfunction, chronic hypoxemic respiratory failure, diabetes mellitus type 2 and hyperlipidemia. He was admitted on 06/03/2017 for flank pain and nausea and vomiting. At that work time, the workup showed a moderate pleural effusion. He has had no recent medication changes. He was discharged on 06/07/2017 home. At that time, his primary diagnosis was ureterolithiasis with hydronephrosis. He had a renal stone. He did pass a stone without complications. He has been doing well, but presented to ER with respiratory distress. Workup in the ER did reveal no significant changes from his relatively poor baseline other than increased pleural effusion. He denies any pleuritic pain. He has moderately poor functional status. He has had no recent medication changes. Please refer to history and physical dictated by me on 06/05/2017 for full details for past medical history, past surgical history, allergies, social history and family history. HOME MEDICATIONS: He has had no recent medication changes since H&P dictated 06/05/17.. REVIEW OF SYSTEMS: CARDIAC: He denies any chest pain, does have some shortness of breath and dyspnea on exertion, both of which are chronic. PULMONARY: No cough, sputum production or pleuritic chest pain. GASTROINTESTINAL: No nausea, vomiting, diarrhea or constipation. All else negative in 10 point review of system except as in HPI. PHYSICAL EXAMINATION: VITAL SIGNS: Upon arrival to the ER, height is 175.2 cm, weight 155.35 kg, BMI 50.6, temperature 97.1, pulse 79, respiratory rate is 23, blood pressure was initially 201/102, although it is not certain this is accurate due to his severe morbid obesity. Shortly later, his blood pressure was 151/59 and O2 saturations were 90% on 3 liters. GENERAL: He is alert, chronic ill-appearing gentleman at time of exam, morbidly obese. HEENT: Pupils equal, round, reactive to light. Sclerae are anicteric. Oropharynx is clear. Mucous membranes are moist. NECK: Supple, without lymphadenopathy. HEART: At time of exam is regular rate and rhythm. LUNGS: Clear bilaterally. Decreased aeration heard posteriorly primarily on the right. ABDOMEN: Soft, obese. Bowel sounds are present. EXTREMITIES: No cyanosis, clubbing. He has chronic lower extremity edema. NEUROLOGIC: Grossly nonfocal. INITIAL LABORATORY DATA: CBC: White count 11.6, hemoglobin is 12.7, platelets 232. Differential: 72% neutrophils, 14% lymphocytes, 10% monocytes. Sodium 143, potassium 3.5, chloride 106, CO2 is 27, BUN 21, creatinine 1.09, glucose 116, calcium is 8.7, total bilirubin 0.9, AST 13, ALT 11, alkaline phosphatase is 66, total CK is 37, CK-MB is 0.8, troponin I is less than 0.02, total protein is 6.2, albumin 2.8. ProBNP is 987. PT of 9.9, PTT is 26.3. D-dimer is 1.6. IMAGING STUDIES: Chest x-ray performed in the Emergency Room revealed increased cardiac silhouette with some volume overload and also bilateral pleural effusions with large effusion on the right. ASSESSMENT AND PLAN: The patient is a 71-year-old man here with acute on chronic hypoxemic respiratory failure with CHF, chronic diastolic dysfunction, obstructive sleep apnea on CPAP therapy, severe morbid obesity, diabetes mellitus type 2, here with a moderate pleural effusion on the right. 1. We will continue his cardiovascular medications. 2. O2 protocol, CPAP at night. 3. Continue his diabetic medications with Accu-Cheks, sliding scale insulin. 4. O2 protocol. 5. We will attempt to consult Interventional Radiology for therapeutic and diagnostic thoracentesis. 6. DVT prophylaxis will be with SCDs if in the hospital more than 24 hours. Time spent on 07/04/2017 is 45 minutes. This plan was discussed with the patient, he is his own decision maker. He does understand and concur with plans. Melvin Mcdonald MD DR: ERNST/madonna JOB# [id number] RUSS
--- NOTE | 2017-07-05 15:50 | NUR ---
Reassessed blood pressure. Blood pressure is 158/66
[2017-07-05 17:43] LABS: EOSINOPHIL 2 % (1-4); LYMPHOCYTE 19 % (25-36); MONOCYTE 7 % (3-9); SEGMENTED NEUTROPHILS 72 % (31-76)
[2017-07-05 17:44] LABS: MICROCYTOSIS 1+ (NEGATIVE)
--- NOTE | 2017-07-05 18:50 | NUR ---
Report Received report from Raad Mancia LVN
--- NOTE | 2017-07-05 19:44 | NUR ---
Patient sitting up on side of bed. Denies pain/discomfort at this time. Will continue to monitor. Call light within reach.
[2017-07-05] MEDS ORDERED: CEPHULAC PO PRN (20:30)
[2017-07-05] MEDS: LANTUS SQ SCH (20:52)
[2017-07-05] MEDS: LIPITOR PO SCH (20:54)
[2017-07-05] MEDS: COLACE PO SCH (20:54)
[2017-07-05] MEDS: TRINTELLIX PO SCH (20:55)
[2017-07-05] MEDS: AMBIEN PO SCH (20:56)
[2017-07-06] VITALS (7 sets, daily range): BP systolic 152–198; BP diastolic 77–96
--- NOTE | 2017-07-06 02:27 | NUR ---
PATIENT RESTING IN BED WITH EYES CLOSED. RESP EVEN AND NON LABORED. CPAP IN PLACE. NO S/S OF DISTRESS NOTED AT THIS TIME. WILL CONTINUE TO MONITOR. CALL LIGHT WITHIN REACH.
[2017-07-06] MEDS: DUONEB 0.5 MG-3 MG/3 ML SOLN IH SCH ×4 (02:41→21:22)
--- NOTE | 2017-07-06 06:48 | NUR ---
Report Report given to MICHELLE Patel
--- NOTE | 2017-07-06 07:45 | NUR ---
RECHECKED BP MANUALLY IT IS 180/90, P 110, NOTIFIED DR. RODRIGUEZ.
[2017-07-06] MEDS: HUMALOG SQ SCH ×3 (07:53→18:00)
[2017-07-06] MEDS: PLAVIX PO SCH (08:09)
[2017-07-06] MEDS: KLOR-CON 10 PO SCH (08:09)
[2017-07-06] MEDS: ENTRESTO 49 MG-51 MG TABLET PO SCH (08:09)
[2017-07-06] MEDS: HYDROCHLOROTHIAZIDE PO SCH (08:09)
[2017-07-06] MEDS: ASPIRIN EC PO SCH (08:09)
[2017-07-06] MEDS: COLACE PO SCH ×2 (08:09→21:00)
[2017-07-06] MEDS: AMARYL PO SCH (08:10)
[2017-07-06] MEDS: TOPROL XL PO SCH (08:10)
--- NOTE | 2017-07-06 08:10 | NUR ---
RECEIVED AN ORDER FOR HYDROCHLOROTHIAZIDE 25 MG AND TOPROL ER 50 MG , THIS NURSE ASKED Pt IF HE IS TAKING HIS OWN BP HOME MEDS, Pt STATES " ALL MY BP MEDS ARE HOME THEY ARE NOT HERE SO HOW CAN I TAKE", NURSE REENFORCED Pt TO NOTIFY THE NURSE IF INCASE HE TAKES HIS HOME BP MEDS, Pt VERBALIZED UNDERSTANDING. ADMINISTER NEW ORDERED BP MEDS.
[2017-07-06 08:14] LABS: BASOPHIL % 0.2 % (0.0-0.2); EOSINOPHIL # 0.2 10^3/uL (0.0-0.2); EOSINOPHIL % 1.9 % (0.0-5.0); LYMPHOCYTES # 1.6 10^3/uL (1.0-4.8); LYMPHOCYTES % 15.5 % (24.0-44.0); MEAN CELL HGB 25.4 pg (26-34); MEAN CELL HGB CONCENTRATION 31.3 g/dL (33-37); MEAN CORP VOLUME 81.4 fL (78-100); MEAN PLATELET VOLUME 9.4 fL (7.8-11.0); MONOCYTES % 9.5 % (5.0-12.0); NEUTROPHIL # 7.3 10^3/uL (1.8-7.7); RED CELL DISTRIBUTION WIDTH 15.9 % (11.5-14.5); WHITE BLOOD CELL 10.2 10^3/uL (4.5-11.0)
[2017-07-06 08:41] LABS: CALCIUM 8.9 mg/dL (8.4-10.5); CARBON DIOXIDE 28.9 mmol/L (20.0-32)
[2017-07-06] MEDS: LASIX IV SCH (09:00)
--- NOTE | 2017-07-06 10:35 | NUR ---
DISCHARGE PLAN CM VISITED WITH PT AND SPOUSE CONCERNING PTS DISCHARGE PLAN AND NEED. PT LIVES @ HOME WITH SPOUSE AND IS INDEPENDENT ON ADLS. HE CURRENTLY USES A CPAP MACHINE WHILE SLEEPING NIGHTLY AND HE HAS HOME O2 IN PLACE SERVICED THROUGH [facility] IN [place] THAT HE USES PRN. PT DENIES NEEDING FURTHER DME NEED @ THIS TIME. EDUCATION GIVEN REGARDING HH SERVICES AND BENEFITS DUE TO HOSPITAL ADMISSION. PT STATED HIS [employer] INSURANCE IS SENDING IN A HH NURSE THROUGH THEIR COMPANY AND HE WANTED TO WAIT AND SEE HOW HIS HOSPITAL STAY WENT BEFORE MAKING AND FURTHER DISCHARGE DECISIONS. CONTACT INFORMATION PROVIDED. CURRENT GOAL FOR PT IS TO RETURN BACK HOME TO ROUTINE CARE AND CM WILL CONTINUE TO FOLLOW.
--- NOTE | 2017-07-06 10:50 | NUR ---
CONSENT FORM FOR THORACENTESIS SIGNED BY Pt A THE BEDSIDE. PT READ THE CONSENT FORM THIS NURSE ASKED Pt IF HE HAS ANY QUESTIONS Pt STATE "NO QUESTIONS".
--- NOTE | 2017-07-06 11:15 | NUR ---
Pt OFF THE FLOOR FOR THORACENTESIS ASSISTED BY RADIOLOGIST MAY IN WHEELCHAIR.
[2017-07-06] MEDS ORDERED: LIDOCAINE 2% VIAL SQ ONE (11:36)
--- NOTE | 2017-07-06 11:40 | NUR ---
Pt BACK TO FLOOR PER RADIOLOGIST Pt DID NOT HAVE THORACENTESES PER IN RADIOLOGIST Pt SHOULD BE OFF FROM PLAVIX , ASPRIN ATLEAST FOR [address] RODRIGUEZ NOTIFIED BY RADIOLOGIST DR. HICKS.
--- NOTE | 2017-07-06 18:56 | NUR ---
report received report from offgoing shift
--- NOTE | 2017-07-06 20:24 | PNH ---
DATE: 07/05/2017 SUBJECTIVE: No significant changes. He states he feels better. He is sitting up on the side of the bed. He is tolerating diet well. No other new changes. OBJECTIVE: VITAL SIGNS: T-max last 24 hours is 97.8, pulse 78, respiratory rate is 20, blood pressure 163/88, O2 saturation 94% on 3 liters nasal cannula, then recorded as 96% on 2 liters. GENERAL: He is alert, in no acute distress at time of exam. Morbidly obese gentleman. HEENT: Pupils equal, round, reactive to light. Sclerae are anicteric. Oropharynx is clear. Mucous membranes are moist. NECK: Supple, no lymphadenopathy. CARDIOVASCULAR: Regular rate and rhythm. LUNGS: Posteriorly decreased air movement right lung field with dullness to percussion. ABDOMEN: Soft, obese. Bowel sounds are present. EXTREMITIES: No cyanosis, clubbing. Chronic lower extremity edema. NEUROLOGIC: Grossly nonfocal. LABORATORY DATA: CBC: White count 13.4, hemoglobin 12.4 and platelets 208. Differential: 75% neutrophils, 13% lymphocytes, 8% monocytes. Sodium 144, potassium 3.3, chloride 106, CO2 is 27, BUN 28, creatinine 1.15, glucose 104 and calcium is 8.9. ASSESSMENT AND PLAN: The patient is a 71-year-old man here with large right pleural effusion with obstructive sleep apnea with CPAP dependence, chronic hypoxic respiratory failure, severe morbid obesity with CHF, chronic diastolic dysfunction. 1. Continue his cardiovascular medications. 2. O2 protocol and CPAP at night. 3. We will consult Radiology for therapeutic thoracentesis on the right. We will see him for labs. I have contacted Radiology by trying to schedule Radiology-guided thoracentesis. Due to his body habitus, it would be difficult to probably do a good job of pleural fluid drainage on this patient in the medical floor. 4. DVT prophylaxis with SCDs. Time spent on 07/05/2017 is 25 minutes. Melvin Mcdonald MD DR: ERNST/madonna JOB# [id number] RUSS
[2017-07-06] MEDS: LANTUS SQ SCH (21:00)
[2017-07-06] MEDS: TRINTELLIX PO SCH (21:00)
[2017-07-06] MEDS: LIPITOR PO SCH (21:01)
[2017-07-06] MEDS: AMBIEN PO SCH (21:01)
[2017-07-06] MEDS ORDERED: TRINTELLIX PO ONE (21:03)
[2017-07-07] MEDS: DUONEB 0.5 MG-3 MG/3 ML SOLN IH SCH ×2 (02:31→08:36)
[2017-07-07 05:34] VITALS: BP 178/82
--- NOTE | 2017-07-07 07:11 | NUR ---
report report given to o/c shift
[2017-07-07 07:56] VITALS: BP 193/85
[2017-07-07] MEDS: HUMALOG SQ SCH (08:00)
[2017-07-07] MEDS: COLACE PO SCH (09:00)
[2017-07-07] MEDS: TOPROL XL PO SCH (09:00)
[2017-07-07] MEDS: ASPIRIN EC PO SCH (09:00)
[2017-07-07] MEDS: LASIX IV SCH (09:00)
[2017-07-07] MEDS: HYDROCHLOROTHIAZIDE PO SCH (09:00)
[2017-07-07] MEDS: AMARYL PO SCH (09:00)
[2017-07-07] MEDS: PLAVIX PO SCH (09:00)
[2017-07-07] MEDS: KLOR-CON 10 PO SCH (09:00)
[2017-07-07] MEDS: ENTRESTO 49 MG-51 MG TABLET PO SCH (09:00)
--- NOTE | 2017-07-07 10:00 | PRM.DC ---
Discharge Summary Date of Discharge: Jul 07, 2017 Reason for Visit: Shortness of breath Patient History: Alzheimer's disease 33 FATHER, , Age:68 Aneurysm G8 BROTHER, , Age:78 Cerebrovascular disorder 32 MOTHER, , Age:60 Chronic obstructive pulmonary disease G8 SISTER, , Age:73 Congestive heart failure 33 FATHER, , Age:68 G8 BROTHER, , Age:78 Coronary artery disease 33 FATHER, , Age:68 G8 BROTHER, , Age:78 G8 SISTER, , Age:27 Diabetes mellitus 32 MOTHER, , Age:60 G8 BROTHER, , Age:78 19 CHILD Hypertension G8 BROTHER, , Age:78 Hypoglycemia G8 SISTER, , Age:73 Liver failure G8 SISTER, , Age:27 History Present Illness: (1) Acute on chronic diastolic CHF (congestive heart failure), NYHA class 3 Status: Chronic ICD Code: I50.33 - Acute on chronic diastolic (congestive) heart failure SNOMED: 513033428, 032960111, 339255245 Assessment & Plan: Continue current medical management (2) Pleural effusion on right SEVERITY: MODERATE PERSISTENT Status: Chronic ICD Code: J90 - Pleural effusion, not elsewhere classified SNOMED: 62355804 Assessment & Plan: See PCP for outpatient referral to Interventional Radiology for therapeutic thoracentesis (will need to be off Plavix for five days) (3) Acute and chronic respiratory failure Status: Chronic ICD Code: J96.20 - Acute and chronic respiratory failure, unspecified whether with hypoxia or hypercapnia SNOMED: 87350381 Assessment & Plan: Continue home oxygen supplementation (4) OSIRIS on CPAP Status: Chronic ICD Code: G47.33 - Obstructive sleep apnea (adult) (pediatric); Z99.89 - Dependence on other enabling machines and devices SNOMED: 06083738, 663974606 Assessment & Plan: Continue CPAP at home when sleeping (5) DM2 (diabetes mellitus, type 2) Status: Chronic ICD Code: E11.9 - Type 2 diabetes mellitus without complications SNOMED: 04637181 Assessment & Plan: Strict ADA diet Continue current diabetic medications General: Alert, Oriented X3, Cooperative, No acute distress HEENT: PERRLA, EOMI Neck: Supple, No JVD Lungs: Normal air movement Heart: Regular rate, Normal S1, Normal S2 Abdomen: Normal bowel sounds, Soft Extremities: No clubbing, No cyanosis, Other (chronic LE edema) Skin: No breakdown Neuro: Normal speech, Strength at 5/5 X4 ext, Cranial nerves 3-12 NL Psych/Mental Status: Mood NL Results(Labs/Rad) Laboratory Tests Test 07/06/17 07:58 White Blood Count 10.2 10^3/uL Red Blood Count 4.72 10^6/uL Hemoglobin 12.0 g/dL Hematocrit 38.4 % Mean Corpuscular Volume 81.4 fL Mean Corpuscular Hemoglobin 25.4 pg Mean Corpuscular Hemoglobin Concent 31.3 g/dL Red Cell Distribution Width 15.9 % Platelet Count 204 10^3/uL Mean Platelet Volume 9.4 fL Neutrophils (%) (Auto) 71.0 % Lymphocytes (%) (Auto) 15.5 % Monocytes (%) (Auto) 9.5 % Neutrophils # (Auto) 7.3 10^3/uL Lymphocytes # (Auto) 1.6 10^3/uL Monocytes # (Auto) 1.0 10^3/uL Absolute Immature Granulocyte (auto 0.19 10^3 u/L Eosinophils % 1.9 % Basophils % 0.2 % Basophils # 0.0 10^3/uL Eosinophil Count 0.2 10^3/uL Sodium Level 145 mmol/L Potassium Level 3.5 mmol/L Chloride Level 107.0 mmol/L Carbon Dioxide Level 28.9 mmol/L Glucose Level 83 mg/dL Blood Urea Nitrogen 28 mg/dL Creatinine 1.09 mg/dL Calcium Level 8.9 mg/dL Anion Gap 12.6 Estimated GFR () 80.7 BUN/Creatinine Ratio 25.0 Percent Immature Gran (Cell Imm) 1.90 % Scheduled Aspirin (Aspir 81), 2 TAB PO DAILY, (Reported) Clopidogrel Bisulfate (Plavix), 1 TAB PO DAILY, (Reported) Furosemide (Lasix), 40 MG PO DAILY Glimepiride (Glimepiride), 1 TAB PO DAILY, (Reported) Insulin Detemir (Levemir), 45 UNIT SQ HS, (Reported) Levofloxacin (Levaquin), 500 MG PO DAILY24 Potassium Chloride (Potassium Chloride), 1 TAB PO DAILY Rosuvastatin 20MG (Crestor 20MG), 1 TAB PO HS, (Reported) Sacubitril/Valsartan (Entresto 49 mg-51 mg Tablet), 1 EACH PO DAILY24, (Reported ) Sacubitril/Valsartan (Entresto 49 mg-51 mg Tablet), 1 EACH PO HS, (Reported) Sitagliptin Phos/Metformin Hcl (Janumet 50-500 Mg Tablet), 1 TAB PO DAILY, ( Reported) Vortioxetine Hydrobromide (Trintellix), 20 MG PO HS, (Reported) Zolpidem Tartrate (Ambien Cr), 1 TAB PO HS, (Reported) Scheduled PRN Metoprolol Succinate/Hctz (Metoprolol ER-Hctz 50-12.5 mg), Unknown Dose PO HS PRN for HYPERTENSION, (Reported) Discontinued Medications Amlodipine/Valsartan (Exforge 10-320 Mg Tablet), 1 TAB PO DAILY, (Reported) Discontinued Reason: Discontinue Aspirin (Aspir 81), 1 TAB PO DAILY, (Reported) Discontinued Reason: Discontinue Insulin Detemir (Levemir), 50 UNIT SQ HS, (Reported) Discontinued Reason: Discontinue Insulin Lispro (Humalog), 10 UNIT SQ TIDM, (Reported) Discontinued Reason: Discontinue Lactulose (Lactulose), 20 GM PO Q4HR Discontinued Reason: Discontinue Metoprolol Succinate (Metoprolol Succinate), 1 TAB PO DAILY, (Reported) Discontinued Reason: Discontinue Tramadol Hcl (Tramadol Hcl), 50 MG PO Q6 PRN for PAIN Discontinued Reason: Discontinue Sepsis Evaluation @ Discharge Course Blood Pressure Systolic: 193 Blood Pressure Diastolic: 85 Blood Pressure Mean: 121 Notes see dictated report Plan Discharge Date: Jul 07, 2017 Dicharge DX: 1. Acute on chronic diastolic CHF, 2. Acute on chronic hypoxemia Discharge Disposition: Stable Plan Resume home medications CPAP while sleeping Oxygen at home Strict ADA diet Activity as tolerated Follow up with PCP for outpatient referral for thoracentesis with Interventional Radiology (will need to be off Plavix for five days) Discharge plans discussed with patient, he is his own decision maker and does understand and concur with plans Time spent 40 minutes Problem Qualifiers (1) DM2 (diabetes mellitus, type 2): Diabetes mellitus salvage determiner insulin use: with salvage determiner use Diabetes mellitus complication status: with circulatory complication Diabetes mellitus complication detail: with other circulatory complications Qualified Codes: E11.59 - Type 2 diabetes mellitus with other circulatory complications; Z79.4 - halfway (current) use of insulin ZAHIRA RODRIGUEZ MD Jul 07, 2017 09:59
--- NOTE | 2017-07-07 10:53 | PNH ---
DATE: 07/06/2017 SUBJECTIVE: The patient went down for thoracentesis, but the procedure was canceled due to the fact that he is on Plavix. No other acute events overnight. OBJECTIVE: VITAL SIGNS: T-max last 24 hours 99.2, pulse 67, respiratory rate 16, blood pressure 179/90, O2 saturations 96% on 3 liters nasal cannula. GENERAL: He is alert, in no acute distress at time of exam. Morbidly obese gentleman. HEENT: Pupils equal, round, reactive to light. Sclerae are anicteric. Oropharynx is clear. Mucous membranes are moist. NECK: Supple, no lymphadenopathy. CARDIOVASCULAR: At time of exam was regular rate and rhythm. LUNGS: Clear anteriorly. There is decreased air movement pretty clear on the right posteriorly with dullness to percussion. ABDOMEN: Soft. Bowel sounds are present. Obese, nontender to palpation. EXTREMITIES: No cyanosis or clubbing. Lower extremity chronic edema with venous stasis skin changes. NEUROLOGIC: Grossly nonfocal. LABORATORY DATA: CBC: White count 10.2, hemoglobin 12.0, platelets 204,000. Differential: 71% neutrophils, 15% lymphocytes and 9% monocytes. Sodium 145, potassium 3.5, chloride 107, CO2 is 29, BUN 28, creatinine 1.09, glucose 83, calcium is 8.9. ASSESSMENT AND PLAN: The patient is a 71-year-old man here with [id number] diastolic heart failure, severe morbid obesity, obstructive sleep apnea with a right pleural effusion. 1. Continue his CPAP and oxygen protocol. 2. Continue cardiovascular medications. 3. Discussed with the patient regarding thoracentesis, he is to follow up as outpatient for Interventional Radiology to drain after thoracentesis after he is off of Plavix for 5 days. Discharge plans were discussed with the patient, if medically stable overnight, we will discharge home. Time spent on 07/06/2017 is 25 minutes. Melvin Mcdonald MD DR: ERNST/madonna JOB# [id number] RUSS
[2017-07-07 11:00] VITALS: BP 193/85
--- NOTE | 2017-07-07 11:00 | NUR ---
DISCHARGE PT DISCHARGED FROM FLOOR AT THIS TIME. PT UNDERSTANDS ALL DC INSTRUCTIONS. PT HAS APPOINTMENT WITH DR. LEARY TO SCHEDULE THORACENTESIS. PT TO HOLD PLAVIX 5 DAYS BEFORE PROCEDURE. PT LEAVES FLOOR VIA WHEELCHAIR TO PRIVATE VEHICLE. NO OTHER NEEDS NOTED
--- NOTE | 2017-07-07 20:25 | DSH ---
DATE OF DISCHARGE: 07/07/2017 DISPOSITION: Routine discharge home. PRINCIPAL DIAGNOSES AT DISCHARGE: Includes [id number]-[id number] diastolic heart failure, Door Heart class 3, right pleural effusion, acute on chronic respiratory failure with hypoxemia, obstructive sleep apnea on CPAP therapy, diabetes mellitus type 2. BRIEF SUMMARY: The patient was initially admitted on 07/03/2017 through the Emergency Room with increased difficulty breathing. Workup revealed he had some mild volume overload. He also had shlvw-hg-wrympqj diastolic heart failure, acute on chronic hypoxemia, obstructive sleep apnea. He had a large right pleural effusion. He was medically managed with diuretics and cardiovascular medications. He was given DuoNebs as needed, which did help his respirations. Interventional Radiology was consulted for therapeutic thoracentesis. He was taken down there, but when they reviewed his medication list, due to being on Plavix, they cancelled the procedure. Routine discharge home. DISCHARGE MEDICATIONS: Resume his previous medications. DISCHARGE FOLLOWUP: With his primary care physician, Dr. Doran to determine the time to schedule outpatient radiology to do a therapeutic thoracentesis. He will have to hold his Plavix 75 mg daily. He will have to hold it 5 days prior to procedure. Discharged on home oxygen and CPAP therapy. Discharge plans were discussed with the patient. He is his own decision maker. He does understand and concur with plans. Time spent on discharge is 40 minutes. Melvin Mcdonald MD DR: ERNST/madonna JOB# [id number]
== END 2017-07-07 11:00 | disposition home or self-care (01) | DRG 291 ==
LOC: ER 14:28 → EDBD 14:28 → MS 15:39
PROVIDERS: ADMIT Internal Medicine; ATTEND Internal Medicine
PROC: 5A09357 Assistance with Respiratory Ventilation, Less than 24 Consecutive Hours, Continuous Positive Airway Pressure (ICD-10-PCS; principal; 2017-07-05)
PROC: 5A09357 Assistance with Respiratory Ventilation, Less than 24 Consecutive Hours, Continuous Positive Airway Pressure (ICD-10-PCS; 2017-07-06)
PROC: 5A09357 Assistance with Respiratory Ventilation, Less than 24 Consecutive Hours, Continuous Positive Airway Pressure (ICD-10-PCS; 2017-07-07)
DX: I11.0 Hypertensive heart disease with heart failure (principal); J96.21 Acute and chronic respiratory failure with hypoxia; Z99.81 Dependence on supplemental oxygen; Z68.42 Body mass index [BMI] 45.0-49.9, adult; E11.9 Type 2 diabetes mellitus without complications; I50.33 Acute on chronic diastolic (congestive) heart failure; E66.01 Morbid (severe) obesity due to excess calories; G47.33 Obstructive sleep apnea (adult) (pediatric); E78.5 Hyperlipidemia, unspecified; Z53.8 Procedure and treatment not carried out for other reasons; Z79.02 Long term (current) use of antithrombotics/antiplatelets; Z79.4 Long term (current) use of insulin; Z79.899 Other long term (current) drug therapy; Z87.442 Personal history of urinary calculi; Z82.0 Family history of epilepsy and other diseases of the nervous system; Z82.49 Family history of ischemic heart disease and other diseases of the circulatory system; Z82.5 Family history of asthma and other chronic lower respiratory diseases; Z83.3 Family history of diabetes mellitus; Z83.79 Family history of other diseases of the digestive system
CPT/HCPCS: 36415; 71045; 80048; 80053; 82550; 82553; 82948; 83880; 84484; 85025; 85379; 85610; 85730; 86677; 93005; 94640; 96374; 96375; 99285; J1815; J1940; J2001; J2930; J3480; J3490; J7620

== ENCOUNTER → 2017-07-08 | Outpatient (CLI) | payer MEDICARE ==
[~2017-07-08] MED LIST changes: +METO1TAB32 PO; +SACU1TAB7 PO
--- NOTE | 2017-07-08 11:57 | DIREP ---
PROCEDURE:CHEST 2 VIEWS COMPARISON:[facility], CR, XRAY CHEST SINGLE VW, 07/03/2017, 02:33 PM. INDICATIONS:J91.8 PLEURAL EFFUSION FINDINGS: LUNGS/PLEURA:Atelectasis/infiltrate about the right lung base with a moderate size right and small left pleural effusion. VASCULATURE:Mildly increased pulmonary vasculature. CARDIAC:Moderate cardiomegaly. MEDIASTINUM:Normal. No visible mass or adenopathy. BONES:Normal. No fracture or visible bony lesion. OTHER:Negative. CONCLUSION:Pulmonary edema/CHF, with bilateral pleural effusions, larger on the right. No change. Dictated by: Johnnie Bravo M.D. on 07/08/2017 at 11:54 AM
== END | disposition home or self-care (01) ==
LOC: LAB 11:01
PROVIDERS: ATTEND Internal Medicine
DX: J91.8 Pleural effusion in other conditions classified elsewhere (principal); I50.9 Heart failure, unspecified; R60.0 Localized edema
CPT/HCPCS: 71046

== ENCOUNTER → 2017-07-22 | Outpatient (CLI) | payer MEDICARE ==
--- NOTE | 2017-07-22 17:04 | DIREP ---
PROCEDURE:CHEST 2 VIEWS COMPARISON:[facility], CR, XRAY CHEST 2 VWS, 07/08/2017, 11:16 AM. [facility], CR, XRAY CHEST SINGLE VW, 07/03/2017, 02:33 PM. [facility], CR, XRAY CHEST 2 VWS, 06/11/2017, 03:35 PM. INDICATIONS:J91.8 PLEURAL EFFUSION FINDINGS: LUNGS/PLEURA:Right pleural effusion and right basilar infiltrate/atelectasis. No other significant pulmonary parenchymal abnormalities. VASCULATURE:Normal. Unremarkable pulmonary vasculature. CARDIAC:Mild cardiomegaly. MEDIASTINUM:Normal. No visible mass or adenopathy. BONES:Left shoulder arthroplasty. OTHER:Negative. CONCLUSION:Mild cardiomegaly. Right pleural effusion and right basilar infiltrate/atelectasis. Dictated by: Elias Acharya M.D. on 07/22/2017 at 05:02 PM
== END | disposition home or self-care (01) ==
LOC: RAD 15:16
PROVIDERS: ATTEND Internal Medicine
DX: J91.8 Pleural effusion in other conditions classified elsewhere (principal); I51.7 Cardiomegaly; J98.11 Atelectasis
CPT/HCPCS: 71046

== ENCOUNTER 2017-09-17 08:12 | Inpatient (IN) | payer MEDICARE ==
[~2017-09-17] VITALS: Ht 177.8 cm; Wt 160.2 kg
--- NOTE | 2017-09-17 08:15 | NUR ---
ARRIVAL PATIENT ARRIVED VIA EMS WITH COMPLAINTS OF "DIFFICULTY BREATHING X12 HOURS" PATIENT ON HIGHCON MASK AT 15% UPON ARRIVAL NOTED USE OF ACCESSORY MUSCLES PATIENT REQUESTS TO SIT IN CHAIR VS BED PATIENT PLACED ON MONITOR
[2017-09-17 08:23] VITALS: BP 161/99
[2017-09-17] MEDS ORDERED: LASIX ONE ×3 (08:26→23:13)
[2017-09-17] MEDS ORDERED: DUONEB 0.5 MG-3 MG/3 ML SOLN IH STA (08:32)
[2017-09-17] MEDS ORDERED: DECADRON IH STA (08:32)
[2017-09-17] MEDS ORDERED: LASIX IV STA ×2 (08:32→23:12)
[2017-09-17] MEDS ORDERED: DUONEB 0.5 MG-3 MG/3 ML SOLN IH ONE (08:34)
--- NOTE | 2017-09-17 08:52 | ER.PDOC ---
General Chief Complaint: Dyspnea/Respdistress Stated Complaint: DYSPNEA Time seen by MD: 09:00 Source: patient, EMS Exam Limitations: no limitations History of Present Illness Timing/Duration: 1 week Severity: moderate Activities at Onset: activity/exertion, rest Prior Episodes/Possible Cause: occasional episodes Modifying Factors: improves with activity, improves with coughing, improves with lying down, improves with oxygen, improves with rest Associated Symptoms: cough, weakness, wheezing Prior symptoms/Treatment: Similar symptoms previous Allergies: Coded Allergies: No Known Allergies (Unverified , 09/23/16) Home Meds Active Scripts Potassium Chloride (POTASSIUM CHLORIDE) 20 Meq Tab.er.prt, 1 TAB PO DAILY, #30 TAB 4 Refills Prov:RORY MANNING MD 08/01/16 Furosemide (LASIX) 20 Mg Tablet, 40 MG PO DAILY, #30 4 Refills Prov:RORY MANNING MD 08/01/16 Reported Medications Insulin Detemir (LEVEMIR) 100 Unit/1 Ml Vial, 45 UNIT SQ HS, VIAL 07/03/17 Sacubitril/Valsartan (Entresto 49 mg-51 mg Tablet) 1 Each Tablet, 1 EACH PO HS, TABLET 07/03/17 Metoprolol Succinate/Hctz (Metoprolol ER-Hctz 50-12.5 mg) 50 Mg-12.5 Mg Tab.er.24h, PO HS PRN for HYPERTENSION 07/03/17 Sacubitril/Valsartan (Entresto 49 mg-51 mg Tablet) 1 Each Tablet, 1 EACH PO DAILY24, TABLET 07/03/17 Aspirin (ASPIR 81) 81 Mg Tablet.dr, 2 TAB PO DAILY, #30 TAB 5 Refills 07/03/17 Vortioxetine Hydrobromide (Trintellix) 20 Mg Tablet, 20 MG PO HS, TABLET 06/02/17 Clopidogrel Bisulfate (PLAVIX) 75 Mg Tablet, 1 TAB PO DAILY, TAB 09/26/16 Zolpidem Tartrate (AMBIEN CR) 12.5 Mg Tab.mphase, 1 TAB PO HS, TAB 08/14/16 Rosuvastatin 20MG (CRESTOR 20MG) 20 Mg Tablet, 1 TAB PO HS, TAB 07/12/16 Glimepiride (GLIMEPIRIDE) 2 Mg Tablet, 1 TAB PO DAILY, TAB 07/12/16 Sitagliptin Phos/Metformin Hcl (JANUMET 50-500 MG TABLET) 1 Each Tablet, 1 TAB PO DAILY, TAB 07/12/16 Past Medical History Medical History: congestive heart failure, COPD, diabetes Surgical History: gastric bypass, hip, knee, shoulder Social History Smoking: non-smoker Alcohol Use: none Drug Use: none Reviewed Nursing Reviewed: Vital Signs, Abn. 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 as Tested, No Motor/Sensory Deficits, Alert, Normal Mood/Affect, Oriented x 3 Skin: Normal Color, Warm/Dry Lymphatic: No Adenopathy Results/Orders Results/Orders Laboratory Tests Test 09/17/17 08:45 White Blood Count 9.4 10^3/uL (4.5-11.0) Red Blood Count 4.43 10^6/uL (4.50-5.90) Hemoglobin 11.5 g/dL (13.9-16.3) Hematocrit 36.9 % (37.0-53.0) Mean Corpuscular Volume 83.3 fL (78-100) Mean Corpuscular Hemoglobin 26.0 pg (26-34) Mean Corpuscular Hemoglobin Concent 31.2 g/dL (33-37) Red Cell Distribution Width 15.3 % (11.5-14.5) Platelet Count 232 10^3/uL (150-400) Mean Platelet Volume 9.4 fL (7.8-11.0) Neutrophils (%) (Auto) 74.7 % (41.0-85.0) Lymphocytes (%) (Auto) 12.2 % (24.0-44.0) Monocytes (%) (Auto) 9.5 % (5.0-12.0) Neutrophils # (Auto) 7.0 10^3/uL (1.8-7.7) Lymphocytes # (Auto) 1.2 10^3/uL (1.0-4.8) Monocytes # (Auto) 0.9 10^3/uL (0.3-0.8) Absolute Immature Granulocyte (auto 0.11 10^3 u/L (0-2) Eosinophils % 2.1 % (0.0-5.0) Basophils % 0.3 % (0.0-0.2) Basophils # 0.0 10^3/uL (0.0-0.1) Eosinophil Count 0.2 10^3/uL (0.0-0.2) Prothrombin Time 9.8 SEC (9.8-11.9) Prothrombin Time INR (Non-Therap) 1.0 Activated Partial Thromboplast Time 27.9 SEC (24.67-30.72) D-Dimer 2.00 mg/L (0.19-0.49) Sodium Level 144 mmol/L (132-145) Potassium Level 3.5 mmol/L (3.6-5.2) Chloride Level 107.0 mmol/L (96-109) Carbon Dioxide Level 28.5 mmol/L (20.0-32) Anion Gap 12.0 Blood Urea Nitrogen 23 mg/dL (7-18) Creatinine 1.18 mg/dL (0.59-1.40) Estimated GFR () 73.4 (>/=60) BUN/Creatinine Ratio 19.0 Glucose Level 117 mg/dL (70-110) Calcium Level 8.9 mg/dL (8.4-10.5) Total Bilirubin 0.7 mg/dL (0.2-1.0) Aspartate Amino Transf (AST/SGOT) 17 U/L (0-35) Alanine Aminotransferase (ALT/SGPT) 16 U/L (12-78) Alkaline Phosphatase 62 U/L (50-136) Total Creatine Kinase 44 U/L (39-308) Creatine Kinase MB 1.0 ng/mL (0.5-3.6) Troponin I < 0.02 ng/mL (0.00-0.05) Pro-B-Type Natriuretic Peptide 1200 pg/mL (0-125) Total Protein 6.6 g/dL (6.4-8.2) Albumin 2.6 g/dL (3.4-5.0) Globulin 4.0 Percent Immature Gran (Cell Imm) 1.20 % (0.00-0.50) Administered Medications Medications (Trade) Dose Ordered Sig/Kelsi Route PRN Reason Start Time Stop Time Status Last Admin Dose Admin Furosemide (Lasix) 60 mg STAT STAT IV 09/17/17 08:32 09/17/17 08:35 DC 09/17/17 08:38 EKG/XRAY/CT/US EKG: NSR Departure Time of Disposition: 09:33 Disposition: 09 ADMITTED INPATIENT Impression: Primary Impression: Congestive heart failure Condition: Improved Referrals: SHANNEN GARCÍA MD (PCP) PRIMARY CARE PROVIDER Duration or Time Spent with Pa: 2 hrs GIA OAKES MD Sep 17, 2017 08:52
[2017-09-17 08:55] LABS: BASOPHIL % 0.3 % (0.0-0.2); EOSINOPHIL # 0.2 10^3/uL (0.0-0.2); EOSINOPHIL % 2.1 % (0.0-5.0); HEMOGLOBIN 11.5 g/dL (13.9-16.3); LYMPHOCYTES # 1.2 10^3/uL (1.0-4.8); LYMPHOCYTES % 12.2 % (24.0-44.0); MEAN CELL HGB CONCENTRATION 31.2 g/dL (33-37); MEAN CORP VOLUME 83.3 fL (78-100); MEAN PLATELET VOLUME 9.4 fL (7.8-11.0); MONOCYTES # 0.9 10^3/uL (0.3-0.8); MONOCYTES % 9.5 % (5.0-12.0); NEUTROPHILS % 74.7 % (41.0-85.0); RED CELL DISTRIBUTION WIDTH 15.3 % (11.5-14.5); WHITE BLOOD CELL 9.4 10^3/uL (4.5-11.0)
--- NOTE | 2017-09-17 08:59 | PCM.EKG ---
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
--- NOTE | 2017-09-17 09:19 | DIREP ---
PROCEDURE:CHEST 2 VIEWS COMPARISON:[facility], CR, XRAY CHEST 2 VWS, 07/22/2017, 03:34 PM. INDICATIONS:chf FINDINGS: LUNGS/PLEURA:Moderate right pleural effusion. VASCULATURE:Moderately increased pulmonary vasculature. CARDIAC:Cardiomegaly. MEDIASTINUM:Normal. No visible mass or adenopathy. BONES:Left shoulder hemiarthroplasty. AC joint arthrosis. OTHER:Negative. CONCLUSION: 1. Moderate CHF pattern with pulmonary vascular congestion and cardiomegaly. 2. Moderate right pleural effusion. Underlying right basilar pneumonia not excluded. Follow-up to clearing recommended. Dictated by: Alon Roberts M.D. on 09/17/2017 at 09:13 AM
[2017-09-17 09:30] VITALS: BP 152/54
[2017-09-17 09:33] LABS: ALANINE AMINOTRANSFERASE(ML) 16 U/L (12-78); ALKALINE PHOSPHATASE 62 U/L (50-136); ASPARTATE AMINO TRANSFERASE 17 U/L (0-35); CALCIUM 8.9 mg/dL (8.4-10.5); CARBON DIOXIDE 28.5 mmol/L (20.0-32); GLUCOSE 117 mg/dL (70-110)
--- NOTE | 2017-09-17 09:57 | NUR ---
DR JENNIFER OAKES ON PHONE WITH DR RODRIGUEZ
[2017-09-17] MEDS ORDERED: NIFE30TA17 PO (11:47)
[2017-09-17] MEDS ORDERED: PANT40TA3 PO (11:47)
[2017-09-17] MEDS ORDERED: METO-237 PO (11:47)
[2017-09-17] MEDS ORDERED: SITA1TAB7 PO (11:47)
[2017-09-17] MEDS ORDERED: MULT1TAB52 PO (11:47)
[2017-09-17] MEDS ORDERED: CETI10TA24 PO (11:47)
[2017-09-17 13:00] VITALS: BP 163/72
[2017-09-17] MEDS: HUMALOG SQ SCH ×3 (13:50→21:00)
[2017-09-17] MEDS: ENTRESTO 49 MG-51 MG TABLET PO SCH ×2 (13:58→21:00)
[2017-09-17 17:46] VITALS: BP 144/61
--- NOTE | 2017-09-17 18:37 | NUR ---
report received report from offgoing shift
[2017-09-17 20:00] VITALS: BP 152/52
[2017-09-17] MEDS: LANTUS SQ SCH (20:53)
[2017-09-17] MEDS: PROCARDIA PO SCH (20:57)
[2017-09-17] MEDS: TOPROL XL PO SCH (20:57)
[2017-09-17] MEDS: TRINTELLIX PO SCH (21:00)
[2017-09-17] MEDS: CRESTOR PO SCH (21:00)
[2017-09-17] MEDS: JANUMET PO SCH ×2 (21:00)
[2017-09-17] MEDS: RESTORIL PO PRN (21:20)
--- NOTE | 2017-09-17 21:26 | NUR ---
PT STATES HE TAKES BREATHING TREATMENTS 2-4 TIMES A DAY, HE DOES NOT KNOW WHAT MEDICATION HE HAS, PT HAS HOME CPAP/BIPAP
[2017-09-17] MEDS ORDERED: NS 100ML 100 ML IV ONE (23:14)
[2017-09-18] VITALS (7 sets, daily range): BP systolic 116–164; BP diastolic 42–66
--- NOTE | 2017-09-18 07:07 | NUR ---
report report given to o/c shift
--- NOTE | 2017-09-18 07:08 | NUR ---
REPORT REPORT RECEIVED FROM ONCOMING SHIFT
[2017-09-18] MEDS: HUMALOG SQ SCH ×4 (07:30→20:59)
[2017-09-18] MEDS: JANUMET PO SCH ×3 (09:00→20:41)
[2017-09-18] MEDS ORDERED: GLUCOPHAGE PO SCH (09:00)
[2017-09-18] MEDS ORDERED: LASIX IV SCH (09:00)
[2017-09-18] MEDS ORDERED: TRADJENTA PO SCH (09:00)
[2017-09-18] MEDS: AMARYL PO SCH (09:40)
[2017-09-18] MEDS: CLARITIN PO SCH (09:41)
[2017-09-18] MEDS: ASPIRIN EC PO SCH (09:41)
[2017-09-18] MEDS: PLAVIX PO SCH (09:41)
[2017-09-18] MEDS: KLOR-CON 10 PO SCH (09:41)
[2017-09-18] MEDS: THERA PO SCH (09:41)
--- NOTE | 2017-09-18 09:55 | NUR ---
DISCHARGE PLANNING CM VISITED WITH PATIENT CONCERNING DISCHARGE NEEDS AND CONCERNS. LIVES AT HOME WITH SIGNIFICANT OTHER. HAS DME INCLUDING WALKER AND SHOWER CHAIR. HAS HOME OXYGEN AND CPAP THROUGH [facility]. CURRENTLY HAS [employer] NURSE BY TELECONFERENCE TWICE MONTHLY TO ASSIST WITH CARE. EDUCATED PT ON HOME HEALTH SERVICES AND PROGRAMS. PT WILL SPEAK TO SIGNIFICANT OTHER TO SEE ABOUT POSSIBLE HOME HEALTH. DISCHARGE GOAL IS TO DISCHARGE HOME WITH SIGNIFICANT OTHER AND [employer] NURSE. CM WILL CONTINUE TO FOLLOW DISCHARGE NEEDS INCLUDING POSSIBLE HOME HEALTH SERVICES. PT TAYLER STATED, "I HAVE A BED BUG PROBLEM IN MY HOUSE RIGHT NOW. THE BUGS HAVE BEEN TREATED NUMEROUS TIMES AND MY MATTRESS IS IN A PLASTIC COVER. IT IS JUST REALLY DIFFICULT TO GET RID OF THE BUGS."
[2017-09-18] MEDS: ENTRESTO 49 MG-51 MG TABLET PO SCH ×2 (12:23→20:44)
[2017-09-18] MEDS ORDERED: ZOFRAN ONE (13:49)
[2017-09-18] MEDS ORDERED: ZOFRAN IV PRN (14:00)
--- NOTE | 2017-09-18 14:01 | NUR ---
DR. RODRIGUEZ PT IS C/O N/V AT THIS TIME. DR. RODRIGUEZ INFORMED ZOFRAN 4MG IV ORDERED AT THIS TIME.
--- NOTE | 2017-09-18 14:16 | NUR ---
DISCHARGE PLANNING UPDATE CM EDUCATED PT AND SIGNIFICANT OTHER AGAIN ABOUT HOME HEALTH SERVICES. PT STATED, "I AM OK WITH HAVING HOME HEALTH, BUT MY SIGNIFICANT OTHER IS VERY PRIVATE." SIGNIFICANT OTHER STATED, "CAN I THINK ABOUT IT FOR A FEW DAYS, BECAUSE I AM VERY PRIVATE?" CM GAVE PT CONTACT INFORMATION FOR CM OFFICE IF NEEDED. DENIES FURTHER NEEDS OR CONCERNS AT THIS TIME.
[2017-09-18 14:25] LABS: HEMOGLOBIN 11.4 g/dL (13.9-16.3); MEAN CELL HGB 25.4 pg (26-34); MEAN CELL HGB CONCENTRATION 30.8 g/dL (33-37); MEAN CORP VOLUME 82.6 fL (78-100); MEAN PLATELET VOLUME 8.9 fL (7.8-11.0); RED CELL DISTRIBUTION WIDTH 15.2 % (11.5-14.5); WHITE BLOOD CELL 10.5 10^3/uL (4.5-11.0)
[2017-09-18 15:09] LABS: CALCIUM 9.2 mg/dL (8.4-10.5); CARBON DIOXIDE 30.8 mmol/L (20.0-32)
[2017-09-18] MEDS ORDERED: DULCOLAX EC TABLET PO STA (16:24)
[2017-09-18] MEDS ORDERED: BISAC-EVAC RC ONE (16:30)
--- NOTE | 2017-09-18 16:35 | NUR ---
DR. JENNIFER RODRIGUEZ NOTIFIED OF PATIENT STRAINING ON THE TOILET TO HAVE A BM. DR. RODRIGUEZ ORDERED DULCOLAX EC 5MG X1 BISACODYL SUPPOSITORY X1. BOTHER MEDICATION GIVEN AT THIS TIME. WILL CONT TO MONITOR PT STOOL FREQUENCY.
[2017-09-18] MEDS: LASIX IV SCH ×2 (17:00→20:52)
--- NOTE | 2017-09-18 18:40 | NUR ---
REPORT RECEIVED BEDSIDE REPORT
--- NOTE | 2017-09-18 18:40 | NUR ---
REPORT REPORT GIVEN TO ONCOMING SHIFT
--- NOTE | 2017-09-18 19:15 | NUR ---
STATUS PT RESTING IN BED, BED IN LOW LOCKED POSITION, SIDE RAILS UP X2, CALL LIGHT WITHIN REACH. PATIENT SHOWS NO SIGNS OF DISTRESS AT THIS TIME
[2017-09-18] MEDS: PROCARDIA PO SCH (20:42)
[2017-09-18] MEDS: TOPROL XL PO SCH (20:43)
[2017-09-18] MEDS: CRESTOR PO SCH (20:44)
[2017-09-18] MEDS: TRINTELLIX PO SCH (20:45)
[2017-09-18] MEDS: LANTUS SQ SCH (21:23)
--- NOTE | 2017-09-18 21:24 | HPH ---
ADMIT DATE: 09/17/2017 CHIEF COMPLAINT: Shortness of breath, increased dyspnea. HISTORY OF PRESENT ILLNESS: The patient is a 72-year-old man with a past medical history significant for hypertension, coronary artery disease, diabetes mellitus type 2, hyperlipidemia, morbid obesity, obstructive sleep apnea, congestive heart failure, diastolic dysfunction, who presented to ER with increased shortness of breath and dyspnea on exertion. He has a history of sleep apnea, using CPAP at night. He is also on multiple diuretics. Apparently, he is not taking his Aldactone for some reason. This has been going on for about a week. Over the last week, he has become progressively more short of breath and more dyspneic with minimal exertion. He denies any chest pain. He uses oxygen at home, normally he has been around 2-3 liters. Upon arrival to the ER, he was on a non-rebreather mask. He has significant dyspnea and orthopnea, which is worse than normal. He had some severe dyspnea with minimal exertion. X-ray did show some volume overload. PAST MEDICAL HISTORY: Includes hypertension, coronary artery disease, diabetes mellitus type 2, hyperlipidemia, morbid obesity, obstructive sleep apnea on CPAP therapy, congestive heart failure, diastolic dysfunction. He has chronic hypoxemic respiratory failure, also using home oxygen at all times. He states he is compliant with his CPAP therapy. PAST SURGICAL HISTORY: He has had PTCA with stents placed, hip surgery, knee surgery and shoulder surgery. ALLERGIES: NO KNOWN DRUG ALLERGIES. CURRENT HOME MEDICATIONS: List includes aspirin 81 mg 2 tablets daily, Zyrtec 10 mg daily, Plavix 75 mg daily, Lasix 40 mg daily, glimepiride 2 mg daily, Levemir 45 units at night, metoprolol succinate 50 mg at night, multivitamin daily, nifedipine 30 mg at night, Protonix 40 mg daily, potassium 20 mEq daily, Crestor 20 mg daily, Entresto 1 tablet in the morning and 1 tablet at night, Janumet 50/500 mg twice a day, Trintellix 20 mg at night, Ambien CR 12.5 mg at night. SOCIAL HISTORY: Lives at home. No recent alcohol, tobacco or illicit drug use history. FAMILY HISTORY: Negative for early coronary artery disease or diabetes. REVIEW OF SYSTEMS: CARDIAC: Denies any chest pain. He does complain of significant shortness of breath and dyspnea on exertion. PULMONARY: No cough, sputum production or pleuritic chest pain. GASTROINTESTINAL: No nausea, vomiting, diarrhea or constipation. All else negative in 10 point review of system except as in HPI. PHYSICAL EXAMINATION: VITAL SIGNS: Upon arrival to the ER, height 177.8 cm, weight 160.2 kg, BMI 50.7, temperature 98.4, pulse 61, respiratory rate is 20, blood pressure 161/99, O2 saturation initially were 98% on non-rebreather mask. GENERAL: He is now alert, chronically ill-appearing gentleman. HEENT: Pupils equal, round, reactive to light. Sclerae are anicteric. Oropharynx is clear. Mucous membranes are moist. NECK: Supple, no lymphadenopathy. CARDIOVASCULAR: At time of exam was regular rate and rhythm. LUNGS: Mild rales bilaterally. No wheezing at the time of exam. ABDOMEN: Soft, obese. Bowel sounds are present, nontender to palpation. EXTREMITIES: No cyanosis, clubbing. He does have some trace lower extremity edema. NEUROLOGIC: Grossly nonfocal. INITIAL LABORATORY DATA: CBC: White count 9.4, [id number] and platelets 232. Differential: 75% neutrophils, 12% lymphocytes and 9% monocytes. Sodium 144, potassium 3.5, chloride 107, CO2 is 28, BUN is 23, creatinine 1.18, glucose 117, calcium is 8.9, total bilirubin 0.7, AST 17, ALT 16, alkaline phosphatase 62, total CK is 44, CK-MB is 1.0, troponin I is less than 0.02, proBNP is 1200 but he is on Entresto, total protein 6.6, albumin 2.6. IMAGING STUDIES: Chest x-ray does show increased pulmonary vascular congestion with moderate right-sided pleural effusion. ASSESSMENT AND PLAN: The patient is a 70-year-old man here with [id number] diastolic heart failure with volume overload, anemia due to chronic disease, moderate protein-calorie malnutrition with morbid obesity, obstructive sleep apnea. 1. We will continue his cardiovascular medications. 2. We will continue to diurese with IV furosemide. Monitor for I's and O's. 3. O2 protocol, CPAP when sleeping. 4. Appropriate p.r.n. pain and nausea medications. 5. Sliding scale insulin for now plus ADA diet. Time spent with the patient is 45 minutes on 09/17/2017. Melvin Mcdonald MD DR: ERNST/madonna JOB# [id number] RUSS
[2017-09-19 04:05] VITALS: BP 132/62
[2017-09-19 06:12] LABS: HEMOGLOBIN 11.2 g/dL (13.9-16.3); MEAN CELL HGB 25.7 pg (26-34); MEAN CELL HGB CONCENTRATION 30.8 g/dL (33-37); MEAN CORP VOLUME 83.7 fL (78-100); MEAN PLATELET VOLUME 9.3 fL (7.8-11.0); RED CELL DISTRIBUTION WIDTH 15.1 % (11.5-14.5); WHITE BLOOD CELL 9.1 10^3/uL (4.5-11.0)
[2017-09-19 06:32] LABS: CALCIUM 8.9 mg/dL (8.4-10.5); CARBON DIOXIDE 32.6 mmol/L (20.0-32)
--- NOTE | 2017-09-19 07:18 | NUR ---
REPORT REPORT RECEIVED FROM HEALTH INFORMATION DIRECTOR
[2017-09-19] MEDS: HUMALOG SQ SCH ×4 (07:30→21:00)
[2017-09-19 07:37] VITALS: BP 152/67
[2017-09-19] MEDS: JANUMET PO SCH ×2 (09:00→21:00)
[2017-09-19] MEDS: ENTRESTO 49 MG-51 MG TABLET PO SCH ×2 (09:00→21:28)
[2017-09-19] MEDS: PLAVIX PO SCH (09:14)
[2017-09-19] MEDS: LASIX IV SCH ×2 (09:14→21:33)
[2017-09-19] MEDS: ASPIRIN EC PO SCH (09:14)
[2017-09-19] MEDS: KLOR-CON 10 PO SCH (09:14)
[2017-09-19] MEDS: CLARITIN PO SCH (09:14)
[2017-09-19] MEDS: AMARYL PO SCH (09:15)
[2017-09-19] MEDS: THERA PO SCH (09:15)
[2017-09-19] MEDS: LOVENOX SQ SCH (09:17)
[2017-09-19 11:15] VITALS: BP 152/64
--- NOTE | 2017-09-19 13:00 | NUR ---
REPORT REPORT RECEIVED FROM Kailyn FARAH RN. PATIENT RESTING IN BED. PATIENT DENIES PAIN OR DISCOMFORT AT THIS TIME. BED IN LOW LOCKED POSITION WITH SIDE RAILS UP X2. BEDSIDE TABLE AND CALL LIGHT WITHIN REACH.
--- NOTE | 2017-09-19 13:29 | PRM.PN ---
Subjective Subjective Date: Sep 19, 2017 Time: 13:15 Subjective Pt reports breathing better and doing ok; using his CPAP Patient History: Alzheimer's disease 33 FATHER, , Age:68 Aneurysm G8 BROTHER, , Age:78 Cerebrovascular disorder 32 MOTHER, , Age:60 Chronic obstructive pulmonary disease G8 SISTER, , Age:73 Congestive heart failure 33 FATHER, , Age:68 G8 BROTHER, , Age:78 Coronary artery disease 33 FATHER, , Age:68 G8 BROTHER, , Age:78 G8 SISTER, , Age:27 Diabetes mellitus 32 MOTHER, , Age:60 G8 BROTHER, , Age:78 19 CHILD Hypertension G8 BROTHER, , Age:78 Hypoglycemia G8 SISTER, , Age:73 Liver failure G8 SISTER, , Age:27 VTE VTE Risk Total Score: >5 VTE Risk Score VTE Risk: Score 0-1 = Low Risk (Aggressive mobilization; early ambulation; no VTE prophylaxis required) Score 2: Moderate Risk (Intermittent/Pneumatic Compression Device OR Lovenox/Heparin/Coumadin) Score 3-4: High Risk (Intermittent/Pneumatic Compression Device AND Lovenox/Heparin/Coumadin) Score > or =5: Highest Risk (Intermittent/Pneumatic Compression Device AND Lovenox/Heparin/Coumadin) Antico:Hep/LMWH/Coum/Xarelto: No Mechanical device ordered: Yes Reasons not ordering prophylax: Bleeding Review of Systems Constitutional: Weakness; No: Chills Respiratory: SOB with excertion Cardiovascular: Edema; No: Chest Pain, Palpitations, Orthopnea Gastrointestinal: No: Nausea, Vomiting, Abdominal Pain Musculoskeletal: No: shoulder pain, back pain Skin: No: Lesions, Jaundice Neurological: Weakness; No: Confusion, Seizures Allergies: Coded Allergies: No Known Allergies (Unverified , 09/23/16) Scheduled Aspirin (Aspir 81), 2 TAB PO DAILY, (Reported) Cetirizine Hcl (Zyrtec), 1 TAB PO DAILY, (Reported) Clopidogrel Bisulfate (Plavix), 1 TAB PO DAILY, (Reported) Furosemide (Lasix), 40 MG PO DAILY Glimepiride (Glimepiride), 1 TAB PO DAILY, (Reported) Insulin Detemir (Levemir), 45 UNIT SQ HS, (Reported) Metoprolol Succinate (Metoprolol Succinate), 1 TAB PO HS, (Reported) Multivitamin (Multivitamins), 1 TAB PO DAILY, (Reported) Nifedipine (Nifedipine Er), 1 TAB PO HS, (Reported) Pantoprazole Sodium (Protonix), 1 TAB PO DAILY, (Reported) Potassium Chloride (Potassium Chloride), 1 TAB PO DAILY Rosuvastatin 20MG (Crestor 20MG), 1 TAB PO HS, (Reported) Sacubitril/Valsartan (Entresto 49 mg-51 mg Tablet), 1 EACH PO DAILY24, (Reported ) Sacubitril/Valsartan (Entresto 49 mg-51 mg Tablet), 1 EACH PO HS, (Reported) Sitagliptin Phos/Metformin Hcl (Janumet 50-500 Mg Tablet), 1 TAB PO BID, ( Reported) Vortioxetine Hydrobromide (Trintellix), 20 MG PO HS, (Reported) Zolpidem Tartrate (Ambien Cr), 1 TAB PO HS, (Reported) Discontinued Medications Metoprolol Succinate/Hctz (Metoprolol ER-Hctz 50-12.5 mg), Unknown Dose PO HS PRN for HYPERTENSION, (Reported) Discontinued Reason: No Longer Taking Sitagliptin Phos/Metformin Hcl (Janumet 50-500 Mg Tablet), 1 TAB PO DAILY, ( Reported) Discontinued Reason: No Longer Taking Objective Vitals and I/O Vital Sign - Last 24 Hours 09/18/17 09/18/17 09/18/17 09/18/17 16:34 17:00 20:15 20:37 Temp 98.0 98.2 Pulse 61 90 60 Resp 19 16 18 B/P (MAP) 144/66 (92) 144/66 144/60 (88) Pulse Ox 89 92 90 O2 Delivery C Pap Nasal Cannula Nasal Canula O2 Flow Rate 2.50 2.50 09/18/17 09/18/17 09/18/17 09/18/17 20:43 20:52 21:07 23:55 Temp 98.4 Pulse 60 62 Resp 18 B/P (MAP) 144/60 144/60 116/42 (66) Pulse Ox 93 O2 Delivery Nasal Cannula Nasal Canula O2 Flow Rate 2.50 2.50 09/19/17 09/19/17 09/19/17 09/19/17 04:05 07:37 08:46 09:14 Temp 98.4 97.4 Pulse 52 55 60 Resp 18 16 18 B/P (MAP) 132/62 (85) 152/67 (95) 132/62 Pulse Ox 94 92 92 O2 Delivery Nasal Canula C Pap Nasal Cannula O2 Flow Rate 2.50 2.50 09/19/17 09/19/17 09:49 11:15 Temp 98.4 Pulse 57 Resp 18 B/P (MAP) 152/64 (93) Pulse Ox 94 O2 Delivery Nasal Cannula C Pap O2 Flow Rate 2.50 Intake and Output 09/18/17 09/18/17 09/19/17 15:00 23:00 07:00 Intake Total 480 ml 600 ml 240 ml Output Total 450 ml 450 ml 900 ml Balance 30 ml 150 ml -660 ml General: Alert, Oriented X3, Cooperative, No acute distress HEENT: Atraumatic, PERRLA, EOMI Neck: Supple, No LAD Lungs: Other (decreased BS B) Heart: Regular rate, Normal S1, Normal S2 Abdomen: Normal bowel sounds, Soft Extremities: No clubbing, No cyanosis Psych/Mental Status: Mental status NL, Mood NL Course Sepsis Screening Results: Posi: NEGATIVE Sepsis Qualifier/Stage: NO DEFINITE RISK Vitals & review Data Vital Sign - Last 24 Hours 09/18/17 09/18/17 09/18/17 09/18/17 16:34 17:00 20:15 20:37 Temp 98.0 98.2 Pulse 61 90 60 Resp 19 16 18 B/P (MAP) 144/66 (92) 144/66 144/60 (88) Pulse Ox 89 92 90 O2 Delivery C Pap Nasal Cannula Nasal Canula O2 Flow Rate 2.50 2.50 09/18/17 09/18/17 09/18/17 09/18/17 20:43 20:52 21:07 23:55 Temp 98.4 Pulse 60 62 Resp 18 B/P (MAP) 144/60 144/60 116/42 (66) Pulse Ox 93 O2 Delivery Nasal Cannula Nasal Canula O2 Flow Rate 2.50 2.50 09/19/17 09/19/17 09/19/17 09/19/17 04:05 07:37 08:46 09:14 Temp 98.4 97.4 Pulse 52 55 60 Resp 16 18 B/P (MAP) 132/62 (85) 152/67 (95) 132/62 Pulse Ox 94 92 92 O2 Delivery Nasal Canula C Pap Nasal Cannula O2 Flow Rate 2.50 2.50 09/19/17 09/19/17 09:49 11:15 Temp 98.4 Pulse 57 Resp 18 B/P (MAP) 152/64 (93) Pulse Ox 94 O2 Delivery Nasal Cannula C Pap O2 Flow Rate 2.50 Intake and Output 09/18/17 09/18/17 09/19/17 15:00 23:00 07:00 Intake Total 480 ml 600 ml 240 ml Output Total 450 ml 450 ml 900 ml Balance 30 ml 150 ml -660 ml Laboratory Tests Test 09/18/17 14:22 09/19/17 05:53 White Blood Count 10.5 10^3/uL 9.1 10^3/uL Red Blood Count 4.48 10^6/uL 4.35 10^6/uL Hemoglobin 11.4 g/dL 11.2 g/dL Hematocrit 37.0 % 36.4 % Mean Corpuscular Volume 82.6 fL 83.7 fL Mean Corpuscular Hemoglobin 25.4 pg 25.7 pg Mean Corpuscular Hemoglobin Concent 30.8 g/dL 30.8 g/dL Red Cell Distribution Width 15.2 % 15.1 % Platelet Count 230 10^3/uL 216 10^3/uL Mean Platelet Volume 8.9 fL 9.3 fL Sodium Level 143 mmol/L 143 mmol/L Potassium Level 3.5 mmol/L 3.9 mmol/L Chloride Level 106.0 mmol/L 106.0 mmol/L Carbon Dioxide Level 30.8 mmol/L 32.6 mmol/L Glucose Level 94 mg/dL 125 mg/dL Blood Urea Nitrogen 27 mg/dL 25 mg/dL Creatinine 1.32 mg/dL 1.31 mg/dL Calcium Level 9.2 mg/dL 8.9 mg/dL Anion Gap 9.7 8.3 Estimated GFR () 64.5 65.1 BUN/Creatinine Ratio 20.0 19.0 Vitamin B12 Level 593 pg/mL Current Medications Medications (Trade) Dose Ordered Sig/Kelsi PRN Reason Start Time Stop Time Status Last Admin Aspirin (Aspirin Ec) 162 mg DAILY 09/18/17 09:00 10/18/17 08:59 09/19/17 09:14 Clopidogrel Bisulfate (Plavix) 75 mg DAILY 09/18/17 09:00 10/18/17 08:59 09/19/17 09:14 Enoxaparin Sodium (Lovenox) 40 mg DAILY 09/19/17 09:00 10/19/17 08:59 09/19/17 09:17 Furosemide (Lasix) 40 mg Q12HR 09/18/17 17:00 10/18/17 16:59 09/19/17 09:14 Glimepiride (Amaryl) 2 mg DAILY 09/18/17 09:00 10/18/17 08:59 09/19/17 09:15 Insulin Glargine (Lantus) 45 unit HS 09/17/17 21:00 10/17/17 20:59 09/18/17 21:23 Insulin Human Lispro (Humalog) Y ACHS 09/17/17 11:30 10/17/17 11:29 Loratadine (Claritin) 10 mg DAILY 09/18/17 09:00 10/18/17 08:59 09/19/17 09:14 Metoprolol Succinate (Toprol Xl) 50 mg HS 09/17/17 21:00 10/17/17 20:59 09/18/17 20:43 Nifedipine (Procardia) 30 mg HS 09/17/17 21:00 10/17/17 20:59 09/18/17 20:42 Ondansetron HCl (Zofran) 4 mg Q4H PRN NAUSEA / VOMITING 09/18/17 14:00 10/18/17 13:59 09/18/17 13:57 Potassium Chloride (Klor-Con 10) 10 meq DAILY 09/18/17 09:00 10/18/17 08:59 09/19/17 09:14 Rosuvastatin Calcium (Crestor) 20 mg HS 09/17/17 21:00 10/17/17 20:59 Temazepam (Restoril) 15 mg HS PRN INSOMNIA 09/17/17 15:00 10/17/17 14:59 09/17/17 21:20 Assessment/Plan Assessment/Plan Assessment/Plan 72 yo male with CHF, CAD, DM, OSIRIS - cont diuresis and follow sugars - recheck CXR tomorrow am - D/C planning for tomorrow if stable WILNER BABB MD 30, 2018 13:29
[2017-09-19 16:00] VITALS: BP 170/65
--- NOTE | 2017-09-19 18:55 | PNH ---
DATE: 09/18/2017 SUBJECTIVE: He states he feels better, but he still has some orthopnea. He has had negative I's and O's over the last 24 hours of about 940 mL. OBJECTIVE: VITAL SIGNS: T-max last 24 hours is 99.1, pulse of 60, respiratory rate is 18, blood pressure 144/60, O2 saturation 90% on 2.5 liters. GENERAL: He is alert, in no acute distress at time of exam. Morbidly obese gentleman. HEENT: Pupils equal, round, reactive to light. Sclerae are anicteric. Oropharynx is clear. Mucous membranes are moist. NECK: Supple, no lymphadenopathy. CARDIOVASCULAR: At time of exam was regular rate and rhythm. LUNGS: Improved aeration bilaterally. No wheezing at time of exam. ABDOMEN: Soft, obese. Bowel sounds are present. EXTREMITIES: No cyanosis, clubbing. Trace lower extremity edema. NEUROLOGIC: Grossly nonfocal. LABORATORY DATA: CBC: White count 10.5, hemoglobin 11.4, platelets 230. Sodium 143, potassium 3.5, chloride 106, CO2 is 31, BUN 27, creatinine 1.3, glucose 94, calcium is 9.2, B12 at 593. ASSESSMENT AND PLAN: The patient is a 72-year-old man here with [id number] diastolic heart failure with volume overload with sleep apnea and chronic hypoxic respiratory failure. 1. We will continue IV diuretics. 2. Negative I's and O's. 3. Family was concerned about his generalized weakness and wanted B12 level was normal. 4. Continue cardiovascular medications. 5. Encourage ambulation. Time spent on 09/18/2017 is 25 minutes. Melvin Mcdonald MD DR: ERNST/madonna JOB# [id number] RUSS
--- NOTE | 2017-09-19 19:22 | NUR ---
REPORT REPORT GIVEN TO PACK WORKER SUPERVISOR.
[2017-09-19 19:30] VITALS: BP 137/57
[2017-09-19] MEDS: CRESTOR PO SCH (21:00)
[2017-09-19] MEDS: TOPROL XL PO SCH (21:28)
[2017-09-19] MEDS: PROCARDIA PO SCH (21:30)
[2017-09-19] MEDS: TRINTELLIX PO SCH (21:30)
[2017-09-19] MEDS: LANTUS SQ SCH (21:38)
[2017-09-19] MEDS: RESTORIL PO PRN (22:19)
[2017-09-19 23:35] VITALS: BP 155/61
--- NOTE | 2017-09-20 01:57 | NUR ---
Tele lead and batteries changed.
[2017-09-20] MEDS ORDERED: ULTRAM PO ONE (03:00)
--- NOTE | 2017-09-20 03:07 | NUR ---
CALL DR. BABB FOR PT PAIN RECEIVED ORDER FOR TRAMADOL 50MG AND IT WAS GIVEN.
[2017-09-20 05:27] VITALS: BP 159/67
--- NOTE | 2017-09-20 07:00 | NUR ---
B S Pt BS, 66, Pt ASYMPTOMATIC STATES THAT "I NEVER HAD PROBLEM WITH LOW BS, I USED TO HAVE BS 200 TO 500', INSTRUCTED PT TO NOTIFY THE NURSE IF HE NOTICES S/S OF LOW BLOOD SUGAR, FEELING WEAK, SWEATY, PT VERBALIZED UNDERSTANDING.
[2017-09-20 07:15] VITALS: BP 180/70
[2017-09-20] MEDS: HUMALOG SQ SCH ×2 (07:30→11:30)
--- NOTE | 2017-09-20 08:47 | DIREP ---
PROCEDURE:CHEST 2 VIEWS COMPARISON:[facility], CR, XRAY CHEST 2 VWS, 09/17/2017, 08:24 AM. [facility], CR, XRAY CHEST 2 VWS, 07/22/2017, 03:34 PM. INDICATIONS:SOB, effusion FINDINGS: LUNGS/PLEURA:Moderate right pleural fluid, not significantly changed. Adjacent opacity in the right lung base may be secondary to atelectasis, underlying infiltrate not excluded. No pneumothorax. VASCULATURE:Mild pulmonary edema. CARDIAC:Cardiomegaly, unchanged. MEDIASTINUM:No visible mass or adenopathy. BONES:Left shoulder arthroplasty OTHER:Negative. CONCLUSION: 1. Findings suggest heart failure, moderate right pleural fluid not significantly changed. Dictated by: Ally Roldan MD on 09/20/2017 at 08:44 AM
[2017-09-20] MEDS: JANUMET PO SCH (09:00)
[2017-09-20] MEDS: AMARYL PO SCH (09:00)
[2017-09-20] MEDS: THERA PO SCH (10:03)
[2017-09-20] MEDS: ENTRESTO 49 MG-51 MG TABLET PO SCH (10:03)
[2017-09-20] MEDS: PLAVIX PO SCH (10:03)
[2017-09-20] MEDS: KLOR-CON 10 PO SCH (10:03)
[2017-09-20] MEDS: LOVENOX SQ SCH (10:03)
[2017-09-20] MEDS: CLARITIN PO SCH (10:04)
[2017-09-20] MEDS: LASIX IV SCH (10:04)
[2017-09-20] MEDS: ASPIRIN EC PO SCH (10:04)
[2017-09-20 11:35] VITALS: BP 171/71
--- NOTE | 2017-09-20 11:53 | NUR ---
HELD AMARYL 2 MG HELD AMARYL 2 MG THIS MORNING, NOTIFIED Pt ., Pt VERBALIZED UNDERSTANDING.
[2017-09-20] MEDS ORDERED: FLEET ENEMA RC STA (13:29)
--- NOTE | 2017-09-20 13:29 | NUR ---
fleet enema Pt REQUESTED TO HAVE FLEET ENEMA, NOTIFIED HOLLEY CHAVEZ VIA TELEPHONE RECEIVED AN ONE TIME ORDER FOR FLEET ENEMA, ADMINISTERED FLEET ENEMA PER ORDER.
--- NOTE | 2017-09-20 14:00 | NUR ---
TELE D/C TELE D/C AT 1400
--- NOTE | 2017-09-20 14:15 | NUR ---
Pt HAD BM
[2017-09-20 14:25] VITALS: BP 171/71
--- NOTE | 2017-09-20 14:25 | NUR ---
DISCHARGED Pt DISCHARGED TO HOME FROM THE HOSPITAL, IV AND TELE D/C EARLIER, EDUCATED Pt ON DISCHARGE PACKET, Pt VERBALIZED UNDERSTANDING. ASSSITED Pt IN WHEELCHAIR TO THE MAIN EXIT, ACCOMPANIED Pt.
--- NOTE | 2017-09-20 22:11 | DSH ---
DATE OF DISCHARGE: 09/20/2017 ADMITTING DIAGNOSES: Acute on chronic systolic and diastolic congestive heart failure with shortness of breath, pulmonary edema, coronary artery disease, type 2 diabetes mellitus and obstructive sleep apnea with obesity. DISCHARGE DIAGNOSES: Systolic and diastolic congestive heart failure, improving with coronary artery disease, diabetes, obstructive sleep apnea and obesity and moderate right pleural effusion. HOSPITAL COURSE: The patient is a 72-year-old gentleman who came in with increasing shortness of breath and increasing fatigue. Chest x-ray did show he had cardiomegaly with pulmonary edema and moderate right-sided pleural effusion. He was in heart failure, coming in. His BNP was 1200. Cardiac enzymes were negative. He was aggressively diuresed with IV Lasix and he diuresed very well. His clinical condition has greatly improved. He is breathing a lot better. He has no pleuritic chest pain. I repeat his chest x-ray that still shows a moderate size right pleural effusion, but he states that he does not have any pain and he is breathing better at this point. He is afebrile. His white count is normal. His creatinine is at 1.3 yesterday. So at this time, he feels good enough to go home. I have asked him to continue his home O2 and his home CPAP when he sleeps. Continue his home medications. I have asked him to restrict his fluid intake to about 1 liter a day only, so he does not overflow his lungs and no strenuous activity. Stay on a cardiac ADA diet. I have asked him to follow up with his PCP, Dr. Doran, next week. Flor Orozco MD DR: SABINO/madonna JOB# [id number]
--- NOTE | 2017-09-21 14:31 | NUR ---
DISCHARGE PLAN UPDATE PATIENT CONTACTED DEPT REQUESTING [facility]. CLINICAL INFORMATION FAXED TO [facility] AND [facility]IN NOTIFIED OF REFERRAL.
== END 2017-09-20 14:23 | disposition home health service (06) | DRG 292 ==
LOC: EDBD 08:12 → ER 08:12 → MS 09:59
PROVIDERS: ADMIT Internal Medicine; ATTEND Internal Medicine
DX: I11.0 Hypertensive heart disease with heart failure (principal); E44.0 Moderate protein-calorie malnutrition; J96.11 Chronic respiratory failure with hypoxia; Z68.43 Body mass index [BMI] 50.0-59.9, adult; I50.43 Acute on chronic combined systolic (congestive) and diastolic (congestive) heart failure; E11.9 Type 2 diabetes mellitus without complications; J44.9 Chronic obstructive pulmonary disease, unspecified; D63.8 Anemia in other chronic diseases classified elsewhere; E66.01 Morbid (severe) obesity due to excess calories; E78.5 Hyperlipidemia, unspecified; G47.33 Obstructive sleep apnea (adult) (pediatric); I25.10 Atherosclerotic heart disease of native coronary artery without angina pectoris; Z98.84 Bariatric surgery status; Z99.81 Dependence on supplemental oxygen; Z79.4 Long term (current) use of insulin; Z79.82 Long term (current) use of aspirin; Z79.02 Long term (current) use of antithrombotics/antiplatelets; Z79.899 Other long term (current) drug therapy; Z82.0 Family history of epilepsy and other diseases of the nervous system; Z82.3 Family history of stroke; Z82.5 Family history of asthma and other chronic lower respiratory diseases; Z82.49 Family history of ischemic heart disease and other diseases of the circulatory system; Z83.3 Family history of diabetes mellitus
CPT/HCPCS: 36415; 71046; 80048; 80053; 82550; 82553; 82607; 82948; 83880; 84484; 85025; 85027; 85379; 85610; 85730; 87040; 93005; 94640; 96374; 99285; J1650; J1815; J1940; J2405; J3480; J3490; J7050; J7620

== ENCOUNTER → 2017-11-13 | Outpatient (CLI) | payer MEDICARE ==
[~2017-11-13] MED LIST changes: +CETI10TA24 PO; +METO-237 PO; +MULT1TAB52 PO; +NIFE30TA17 PO; +PANT40TA3 PO
== END | disposition home or self-care (01) ==
LOC: LAB 12:40
PROVIDERS: ATTEND Internal Medicine
DX: E11.22 Type 2 diabetes mellitus with diabetic chronic kidney disease (principal); I13.0 Hypertensive heart and chronic kidney disease with heart failure and stage 1 through stage 4 chronic kidney disease, or unspecified chronic kidney disease; N18.4 Chronic kidney disease, stage 4 (severe); I50.32 Chronic diastolic (congestive) heart failure; E78.00 Pure hypercholesterolemia, unspecified; E03.9 Hypothyroidism, unspecified; J44.9 Chronic obstructive pulmonary disease, unspecified; I25.10 Atherosclerotic heart disease of native coronary artery without angina pectoris; Z87.891 Personal history of nicotine dependence
CPT/HCPCS: 83036

== ENCOUNTER → 2018-04-02 | Outpatient (CLI) | payer MEDICARE | END | disposition home or self-care (01) | LOC: NPLAB 13:45 | PROVIDERS: ATTEND Internal Medicine | DX: E11.9 Type 2 diabetes mellitus without complications (principal) | CPT/HCPCS: 83036 ==

== ENCOUNTER → 2018-06-29 | Outpatient (CLI) | payer MEDICARE ==
[~2018-06-29] MED LIST changes: -ROSU20TA PO; +ROSU20TA2 PO
[2018-06-29 12:26] LABS: BASOPHIL % 0.2 % (0.0-0.2); EOSINOPHIL # 0.1 10^3/uL (0.0-0.2); HEMOGLOBIN 11.3 g/dL (13.9-16.3); LYMPHOCYTES # 0.8 10^3/uL (1.0-4.8); LYMPHOCYTES % 5.8 % (24.0-44.0); MEAN CELL HGB 26.5 pg (26-34); MEAN CELL HGB CONCENTRATION 32.3 g/dL (33-37); MEAN CORP VOLUME 82.2 fL (78-100); MEAN PLATELET VOLUME 9.3 fL (7.8-11.0); MONOCYTES % 7.7 % (5.0-12.0); NEUTROPHILS % 83.2 % (41.0-85.0); WHITE BLOOD CELL 13.2 10^3/uL (4.5-11.0)
[2018-06-29 12:54] LABS: CALCIUM 8.8 mg/dL (8.4-10.5); CARBON DIOXIDE 28.2 mmol/L (20.0-32)
[2018-06-29 13:29] LABS: BAND NEUTROPHILS 3 % (2-6); LYMPHOCYTE 5 % (25-36); MONOCYTE 5 % (3-9); SEGMENTED NEUTROPHILS 85 % (31-76)
[2018-06-29 13:30] LABS: EOSINOPHIL 2 % (1-4)
--- NOTE | 2018-06-29 15:30 | DIREP ---
PROCEDURE:CHEST 2 VIEWS COMPARISON:[facility], CR, XRAY CHEST 2 VWS, 09/20/2017, 07:17 AM. INDICATIONS:SOB, ACUTE CHF FINDINGS: LUNGS/PLEURA:Diffuse interstitial prominence throughout the bilateral hemithoraces. More confluent opacities at the right lung base would suggest a combination of moderate pleural effusion with associated compressive atelectasis. Potential trace left pleural effusion is not excluded. VASCULATURE:Central pulmonary vascular congestion. CARDIAC:Similar prominence of the cardiac silhouette. MEDIASTINUM:Stable mediastinal contours. BONES:Left shoulder arthroplasty is partially imaged. Degenerative changes of the right shoulder. CONCLUSION: 1. Pulmonary vascular congestion with diffuse interstitial thickening throughout the bilateral hemithoraces would suggest CHF/fluid overload. There is a moderate right pleural effusion with likely associated compressive atelectasis at the right lung base. Underlying infiltrate is not excluded in the appropriate clinical setting. Potential trace left pleural effusion. Overall appearance is fairly similar to the previous study from 09/20/2017. Dictated by: Rio Mcdonald M.D. On 06/29/2018 at 03:27 PM
== END | disposition home or self-care (01) ==
LOC: RAD 12:04
PROVIDERS: ATTEND Internal Medicine
DX: J90 Pleural effusion, not elsewhere classified (principal); I50.23 Acute on chronic systolic (congestive) heart failure; I25.10 Atherosclerotic heart disease of native coronary artery without angina pectoris
CPT/HCPCS: 36415; 71046; 80053; 83880; 85025

== ENCOUNTER 2018-06-30 12:52 | Emergency (ER) | payer MEDICARE ==
[~2018-06-30] VITALS: Ht 172.7 cm; Wt 154.2 kg
[~2018-06-30 12:52] MED LIST changes: +LASIX IV STA; +NITRO-DUR 0.4MG PATCH TD STA
--- NOTE | 2018-06-30 12:53 | NUR ---
ARRIVAL PATIENT TO ER 3 VIA EMS. PATIENT HAS BEEN SHORT OF BREATH FOR 2 WEEKS, AND HAS A HISTORY OF CHF, PATIENT HAS HAD LABS AND XRAY DONE YESTERDAY FOR SERGIO. PATIENT HAS NO PLATE STRAIGHTENER. ASSESSMENT COMPLETED, CONNECTED TO ALL MONITORS, FOOD SERVICE COUNTER CLERK IN PLACE. PATIENT DENIES ANY PAIN.
[2018-06-30 12:57] LABS: BASOPHIL % 0.3 % (0.0-0.2); EOSINOPHIL # 0.2 10^3/uL (0.0-0.2); EOSINOPHIL % 2.1 % (0.0-5.0); HEMOGLOBIN 11.3 g/dL (13.9-16.3); LYMPHOCYTES # 1.1 10^3/uL (1.0-4.8); MEAN CELL HGB 26.6 pg (26-34); MEAN CELL HGB CONCENTRATION 32.1 g/dL (33-37); MEAN CORP VOLUME 82.8 fL (78-100); MEAN PLATELET VOLUME 8.9 fL (7.8-11.0); MONOCYTES # 0.8 10^3/uL (0.3-0.8); MONOCYTES % 7.8 % (5.0-12.0); NEUTROPHIL # 8.3 10^3/uL (1.8-7.7); RED CELL DISTRIBUTION WIDTH 15.1 % (11.5-14.5); WHITE BLOOD CELL 10.7 10^3/uL (4.5-11.0)
[2018-06-30 12:58] VITALS: BP 220/78
--- NOTE | 2018-06-30 13:01 | PCM.EKG ---
[facility] Test Date: 2018-06-30 Test Time: 12:49:05 Pat Name: ELLE CAIN Department: Room: Gender: Network Intelligence Analyst: : [id number] Requested By: GIA OAKES Order Number: [id number] Reading MD: Measurements Intervals [place] Rate: 64 P: 75 TX: 198 QRS: 22 QRSD: 110 T: 22 QT: 448 QTc: 462 Interpretive Statements Normal sinus rhythm Normal ECG Compared to ECG 09/17/2017 09:02:09 No significant changes Please click the below link to view image of tracing.
--- NOTE | 2018-06-30 13:08 | DIREP ---
PROCEDURE:CHEST 1 VIEW COMPARISON:[facility], CR, XRAY CHEST 2 VWS, 06/29/2018, 12:14 PM. INDICATIONS:chf FINDINGS: LUNGS/PLEURA:Lordotic projection and low lung volumes. Improved bilateral parahilar interstitial thickening. Stable bilateral pleural effusions, right greater than left common bibasilar atelectasis. CARDIAC:Prominent cardiac silhouette and decreased pulmonary vascular congestion. Aortic arch calcifications. MEDIASTINUM:Normal BONES:Left shoulder reconstruction OTHER:No additional findings. CONCLUSION:Improving CHF and stable bilateral pleural effusions. Dictated by: Dayanara Gupta MD on 06/30/2018 at 01:05 PM
[2018-06-30 13:21] LABS: CALCIUM 8.8 mg/dL (8.4-10.5); CARBON DIOXIDE 29.4 mmol/L (20.0-32)
[2018-06-30 13:30] VITALS: BP 178/94
--- NOTE | 2018-06-30 13:30 | NUR ---
UPDATE PATIENT IN ROOM, IN CHAIR, REFUSES TO BE IN THE BED.
[2018-06-30] MEDS ORDERED: NITRO-DUR 0.4MG PATCH TD ONE (13:51)
[2018-06-30] MEDS ORDERED: LASIX ONE (13:52)
[2018-06-30] MEDS ORDERED: MORPHINE SULFATE ONE (13:52)
[2018-06-30] MEDS: MORPHINE SULFATE IV PRN ×2 (13:55→14:03)
--- NOTE | 2018-06-30 14:00 | NUR ---
DR. COLON EDP ON PHONE WITH DR. COLON, STATES PATIENT WILL HAVE TO GO TO [place] WHERE THERE IS CARDIOLOGY.
[2018-06-30 14:17] VITALS: BP 187/90
--- NOTE | 2018-06-30 14:23 | ER.PDOC ---
General Chief Complaint: Dyspnea/Respdistress Stated Complaint: DYSNEA Time seen by MD: 14:00 Source: patient, family, EMS Exam Limitations: no limitations History of Present Illness Timing/Duration: 24 hours Severity: moderate Activities at Onset: activity/exertion Prior Episodes/Possible Cause: occasional episodes Modifying Factors: improves with activity, improves with lying down, improves with oxygen, improves with rest Associated Symptoms: denies symptoms Prior symptoms/Treatment: Similar symptoms previous, Recenly Seen, Treated by Doctor Allergies: Coded Allergies: No Known Allergies (Unverified , 09/23/16) Home Meds Active Scripts Potassium Chloride (POTASSIUM CHLORIDE) 20 Meq Tab.er.prt, 1 TAB PO DAILY, #30 TAB 4 Refills Prov:RORY MANNING MD 08/01/16 Furosemide (LASIX) 20 Mg Tablet, 40 MG PO DAILY, #30 4 Refills Prov:RORY MANNING MD 08/01/16 Reported Medications Nifedipine (NIFEDIPINE ER) 30 Mg Tab.er.24, 1 TAB PO HS, #90 TAB 1 Refill 09/17/17 Cetirizine Hcl (ZYRTEC) 10 Mg Tablet, 1 TAB PO DAILY, #30 TAB 2 Refills 09/17/17 Pantoprazole Sodium (PROTONIX) 40 Mg Tablet.dr, 1 TAB PO DAILY, #30 TAB 5 Refills 09/17/17 Multivitamin (MULTIVITAMINS) 1 Each Tablet, 1 TAB PO DAILY, #90 TAB 3 Refills 09/17/17 Metoprolol Succinate (METOPROLOL SUCCINATE) 50 Mg Tab.er.24h, 1 TAB PO HS, #30 TAB 5 Refills 09/17/17 Sitagliptin Phos/Metformin Hcl (JANUMET 50-500 MG TABLET) 1 Each Tablet, 1 TAB PO BID, #60 TAB 5 Refills 09/17/17 Insulin Detemir (LEVEMIR) 100 Unit/1 Ml Vial, 45 UNIT SQ HS, VIAL 07/03/17 Sacubitril/Valsartan (Entresto 49 mg-51 mg Tablet) 1 Each Tablet, 1 EACH PO HS, TABLET 07/03/17 Sacubitril/Valsartan (Entresto 49 mg-51 mg Tablet) 1 Each Tablet, 1 EACH PO DAILY24, TABLET 07/03/17 Aspirin (ASPIR 81) 81 Mg Tablet.dr, 2 TAB PO DAILY, #30 TAB 5 Refills 07/03/17 Vortioxetine Hydrobromide (Trintellix) 20 Mg Tablet, 20 MG PO HS, TABLET 06/02/17 Clopidogrel Bisulfate (PLAVIX) 75 Mg Tablet, 1 TAB PO DAILY, TAB 09/26/16 Zolpidem Tartrate (AMBIEN CR) 12.5 Mg Tab.mphase, 1 TAB PO HS, TAB 08/14/16 Rosuvastatin 20MG (CRESTOR 20MG) 20 Mg Tablet, 1 TAB PO HS, TAB 07/12/16 Glimepiride (GLIMEPIRIDE) 2 Mg Tablet, 1 TAB PO DAILY, TAB 07/12/16 Past Medical History Medical History: congestive heart failure, diabetes, high cholesterol, heart attack, hypertension Surgical History: gastric bypass, hip, knee, shoulder Social History Smoking: non-smoker Alcohol Use: none Drug Use: none Reviewed Nursing Reviewed: Vital Signs, Abn. Noted Review of Systems Constitutional: no symptoms reported EENTM: no symptoms reported Respiratory: no symptoms reported Gastrointestinal: no symptoms reported All Other Systems: Reviewed and Negative Physical Exam General Appearance: Mild Distress HEENT: PERRL/EOMI, Normal ENT Inspection, TMs Normal, Pharynx Normal Neck: Non-Tender, Full Range of Motion, Supple, Normal Inspection Respiratory: respiratory distress, decreased breath sounds, accessory muscle use, crackles, prolonged expirations, rales, retractions Cardiovascular: Normal Peripheral Pulses, Regular Rate, Rhythm, No Edema, No Gallop, No JVD, No Murmur Gastrointestinal: Normal Bowel Sounds, No Organomegaly, No Pulsatile Mass, Non Tender, Soft Extremities: Pedal Edema 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 (06/30/18 12:36) Helicobacter Pylori (06/30/18 12:36) D-Dimer (06/30/18 12:36) Xr Chest 1v (06/30/18 12:36) Ekg-Routine (06/30/18 ) Morphine Sulfate (Morphine Sulfate) (06/30/18 13:00) Nitroglycerin (Nitro-Dur 0.4mg Patch) (06/30/18 12:52) Furosemide (Lasix) (06/30/18 12:52) Nitroglycerin (Nitro-Dur 0.4mg Patch) (06/30/18 13:51) Furosemide (Lasix) (06/30/18 13:52) Morphine Sulfate (Morphine Sulfate) (06/30/18 13:52) Vital Signs Date Time Temp Pulse Resp B/P (MAP) Pulse Ox O2 Delivery O2 Flow Rate FiO2 06/30/18 14:17 61 18 187/90 (122) 93 Nasal Canula 3.00 06/30/18 13:30 64 18 178/94 (122) 94 Room Air 06/30/18 12:58 98.4 65 18 220/78 (125) 92 Nasal Canula 3.00 98.4 06/30/18 12:53 98.4 67 1 92 Nasal Canula 98.4 06/30/18 12:53 98.4 65 18 98.4 Administered Medications Medications (Trade) Dose Ordered Sig/Kelsi Route PRN Reason Start Time Stop Time Status Last Admin Dose Admin Nitroglycerin (Nitro-Dur 0.4mg Patch) 1 each STAT STAT TD 06/30/18 12:52 06/30/18 12:54 DC 06/30/18 13:54 1 EACH Laboratory Tests Test 06/30/18 12:51 White Blood Count 10.7 10^3/uL (4.5-11.0) Red Blood Count 4.25 10^6/uL (4.50-5.90) L Hemoglobin 11.3 g/dL (13.9-16.3) L Hematocrit 35.2 % (37.0-53.0) L Mean Corpuscular Volume 82.8 fL (78-100) Mean Corpuscular Hemoglobin 26.6 pg (26-34) Mean Corpuscular Hemoglobin Concent 32.1 g/dL (33-37) L Red Cell Distribution Width 15.1 % (11.5-14.5) H Platelet Count 240 10^3/uL (150-400) Mean Platelet Volume 8.9 fL (7.8-11.0) Neutrophils (%) (Auto) 78.0 % (41.0-85.0) Lymphocytes (%) (Auto) 10.0 % (24.0-44.0) L Monocytes (%) (Auto) 7.8 % (5.0-12.0) Neutrophils # (Auto) 8.3 10^3/uL (1.8-7.7) H Lymphocytes # (Auto) 1.1 10^3/uL (1.0-4.8) Monocytes # (Auto) 0.8 10^3/uL (0.3-0.8) Absolute Immature Granulocyte (auto 0.19 10^3 u/L (0-2) Eosinophils % 2.1 % (0.0-5.0) Basophils % 0.3 % (0.0-0.2) H Basophils # 0.0 10^3/uL (0.0-0.1) Eosinophil Count 0.2 10^3/uL (0.0-0.2) Prothrombin Time 10.0 SEC (9.8-11.9) Prothrombin Time INR (Non-Therap) 1.0 PTT 26.5 SEC (24.67-30.72) D-Dimer 2.00 mg/L (0.19-0.49) *H Sodium Level 143 mmol/L (132-145) Potassium Level 3.7 mmol/L (3.6-5.2) Chloride Level 105.0 mmol/L (96-109) Carbon Dioxide Level 29.4 mmol/L (20.0-32) Anion Gap 12.3 Blood Urea Nitrogen 26 mg/dL (7-18) H Creatinine 1.39 mg/dL (0.59-1.40) Estimated GFR () 60.8 (>/=60) BUN/Creatinine Ratio 18.0 Glucose Level 110 mg/dL (70-110) Calcium Level 8.8 mg/dL (8.4-10.5) Total Bilirubin 0.7 mg/dL (0.2-1.0) Aspartate Amino Transferase (AST) 11 U/L (0-35) Alanine Aminotransferase (ALT) 12 U/L (12-78) Alkaline Phosphatase 66 U/L (50-136) Total Creatine Kinase 45 U/L (39-308) Troponin I 0.06 ng/mL (0.00-0.05) H Pro-B-Type Natriuretic Peptide 5699 pg/mL (0-125) H Total Protein 6.9 g/dL (6.4-8.2) Albumin 2.8 g/dL (3.4-5.0) L Globulin 4.1 Percent Immature Gran (Cell Imm) 1.80 % (0.00-0.50) H Helicobacter pylori Screen NEGATIVE (NEGATIVE) EKG/XRAY/CT/US EKG: NSR Consult/PCP Time Consult/PCP Called: 14:22 Consult/PCP: DR COLON Course Sepsis Screening Results: Posi: NEGATIVE Sepsis Qualifier/Stage: NO DEFINITE RISK Duration or Total Time Spent w: 2 hrs Vitals & review Data Vital Sign - Last 24 Hours 06/30/18 06/30/18 06/30/18 06/30/18 12:53 12:53 12:58 13:30 Temp 98.4 98.4 98.4 98.4 98.4 98.4 Pulse 65 67 65 64 Resp 18 1 18 18 B/P (MAP) 220/78 (125) 178/94 (122) Pulse Ox 92 92 94 O2 Delivery Nasal Canula Nasal Canula Room Air O2 Flow Rate 3.00 06/30/18 14:17 Pulse 61 Resp 18 B/P (MAP) 187/90 (122) Pulse Ox 93 O2 Delivery Nasal Canula O2 Flow Rate 3.00 Laboratory Tests Test 06/30/18 12:51 White Blood Count 10.7 10^3/uL Red Blood Count 4.25 10^6/uL Hemoglobin 11.3 g/dL Hematocrit 35.2 % Mean Corpuscular Volume 82.8 fL Mean Corpuscular Hemoglobin 26.6 pg Mean Corpuscular Hemoglobin Concent 32.1 g/dL Red Cell Distribution Width 15.1 % Platelet Count 240 10^3/uL Mean Platelet Volume 8.9 fL Neutrophils (%) (Auto) 78.0 % Lymphocytes (%) (Auto) 10.0 % Monocytes (%) (Auto) 7.8 % Neutrophils # (Auto) 8.3 10^3/uL Lymphocytes # (Auto) 1.1 10^3/uL Monocytes # (Auto) 0.8 10^3/uL Absolute Immature Granulocyte (auto 0.19 10^3 u/L Eosinophils % 2.1 % Basophils % 0.3 % Basophils # 0.0 10^3/uL Eosinophil Count 0.2 10^3/uL Prothrombin Time 10.0 SEC Prothrombin Time INR (Non-Therap) 1.0 Activated Partial Thromboplast Time 26.5 SEC D-Dimer 2.00 mg/L Sodium Level 143 mmol/L Potassium Level 3.7 mmol/L Chloride Level 105.0 mmol/L Carbon Dioxide Level 29.4 mmol/L Anion Gap 12.3 Blood Urea Nitrogen 26 mg/dL Creatinine 1.39 mg/dL Estimated GFR () 60.8 BUN/Creatinine Ratio 18.0 Glucose Level 110 mg/dL Calcium Level 8.8 mg/dL Total Bilirubin 0.7 mg/dL Aspartate Amino Transf (AST/SGOT) 11 U/L Alanine Aminotransferase (ALT/SGPT) 12 U/L Alkaline Phosphatase 66 U/L Total Creatine Kinase 45 U/L Troponin I 0.06 ng/mL Pro-B-Type Natriuretic Peptide 5699 pg/mL Total Protein 6.9 g/dL Albumin 2.8 g/dL Globulin 4.1 Percent Immature Gran (Cell Imm) 1.80 % Helicobacter pylori Screen NEGATIVE Current Medications Medications (Trade) Dose Ordered Sig/Kelsi PRN Reason Start Time Stop Time Status Last Admin Morphine Sulfate (Morphine Sulfate) 4 mg STAT PRN PAIN 4 - 6 06/30/18 13:00 07/30/18 12:59 Sepsis Infection Criteria Pres: None LEVEL 1 SEPSIS INFECTION CRITE: Cough/Shortness of Breath LEVEL 2-SIRS (LIST ALL THAT AP: None/Not assessed Cardiovascular Evidence: Not Assessed or None Hematologic Evidence: None/Not assessed Hepatic Evidence: None/Not assessed Metabolic Evidence: None/Not assessed Neurological Evidence: None/Not assessed Respiratory Evidence: Need for O2 to keep>90%, O2 SAT<90room air Renal Evidence: None/Not assessed O2 Sat by Pulse Oximetry: 93 Oxygen Flow Rate: 3.00 Departure Time of Disposition: 15:33 Disposition: 02 XFER SHT-TRM HOSP Impression: Primary Impression: Congestive heart failure Condition: Improved Referrals: SHANNEN GARCÍA MD (PCP) PRIMARY CARE PROVIDER Duration or Time Spent with Pa: 2 HRS GIA OAKES MD Jun 30, 2018 14:23
--- NOTE | 2018-06-30 14:58 | NUR ---
[facility] CALLED FOR PATIENT TRANSFER TO [facility] ER.
[2018-06-30 14:59] VITALS: BP 210/93
--- NOTE | 2018-06-30 15:08 | NUR ---
[facility] HERE TO RESUME CARE OF PATIENT.
[2018-06-30 15:40] VITALS: BP 210/93
== END 2018-06-30 15:40 | disposition short-term general hospital (02) ==
LOC: ER 12:52 → EDBD 12:52 → ER 15:40
DX: I11.0 Hypertensive heart disease with heart failure (principal); I50.9 Heart failure, unspecified; I25.2 Old myocardial infarction; E11.9 Type 2 diabetes mellitus without complications; E78.00 Pure hypercholesterolemia, unspecified; Z79.82 Long term (current) use of aspirin; Z79.4 Long term (current) use of insulin; Z79.899 Other long term (current) drug therapy; Z98.84 Bariatric surgery status
CPT/HCPCS: 36415; 71045; 80053; 82550; 83880; 84484; 85025; 85379; 85610; 85730; 86677; 93005; 96374; 99285; J2270; J1940

== ENCOUNTER 2018-08-23 13:57 | Emergency (ER) | payer MEDICARE ==
[~2018-08-23] VITALS: Ht 175.3 cm; Wt 155.6 kg
[~2018-08-23 13:57] MED LIST changes: -LASIX IV STA; -NITRO-DUR 0.4MG PATCH TD STA
[2018-08-23 14:10] VITALS: BP 137/72
[2018-08-23] MEDS ORDERED: LASIX IV STA (14:11)
[2018-08-23] MEDS ORDERED: MORPHINE SULFATE IV STA (14:16)
--- NOTE | 2018-08-23 14:33 | DIREP ---
PROCEDURE:CHEST 1 VIEW COMPARISON:[facility], CR, XRAY CHEST SINGLE VW, 06/30/2018, 12:53 PM. INDICATIONS:dyspnea, chf FINDINGS: LUNGS/PLEURA:There is a moderate to large right-sided pleural effusion not significantly changed from prior study. Infiltrate and/or compressive atelectasis is again seen in the right base. No definite left pleural effusion is seen. VASCULATURE:The pulmonary vascular markings remain increased. CARDIAC:Cardiomegaly is unchanged. MEDIASTINUM:Normal. No visible mass or adenopathy. BONES:A left shoulder arthroplasty is again noted. OTHER:Negative. CONCLUSION:Cardiomegaly with pulmonary vascular congestion with a moderate to large right-sided pleural effusion again seen with underlying infiltrate and/or compressive atelectasis in the right base. Dictated by: Kyrie Adorno M.D. on 08/23/2018 at 02:29 PM
[2018-08-23] MEDS ORDERED: NITRO-DUR 0.4MG PATCH TD ONE (14:34)
[2018-08-23] MEDS ORDERED: LASIX ONE (14:34)
--- NOTE | 2018-08-23 14:40 | PCM.EKG ---
[facility] Test Date: 2018-08-23 Test Time: 14:38:07 Pat Name: ELLE CAIN Department: Room: Gender: M Forensic Nurse: JONATHAN : 1945 Requested By: GIA OAKES Order Number: [id number] Reading MD: Measurements Intervals Roy Rate: 48 P: 42 OH: 216 QRS: 56 QRSD: 110 T: 17 QT: 484 QTc: 432 Interpretive Statements Marked sinus bradycardia with 1st degree AV block Abnormal ECG Compared to ECG 06/30/2018 12:49:05 First degree AV block now present Sinus rhythm no longer present Please click the below link to view image of tracing.
[2018-08-23 14:47] LABS: BASOPHIL % 0.1 % (0.0-0.2); EOSINOPHIL # 0.2 10^3/uL (0.0-0.2); EOSINOPHIL % 2.3 % (0.0-5.0); HEMOGLOBIN 10.4 g/dL (13.9-16.3); LYMPHOCYTES # 0.8 10^3/uL (1.0-4.8); LYMPHOCYTES % 10.3 % (24.0-44.0); MEAN CORP VOLUME 83.8 fL (78-100); MEAN PLATELET VOLUME 9.3 fL (7.8-11.0); MONOCYTES # 0.6 10^3/uL (0.3-0.8); MONOCYTES % 8.3 % (5.0-12.0); NEUTROPHILS % 78.1 % (41.0-85.0); RED CELL DISTRIBUTION WIDTH 15.1 % (11.5-14.5); WHITE BLOOD CELL 7.7 10^3/uL (4.5-11.0)
[2018-08-23 15:11] LABS: CALCIUM 8.9 mg/dL (8.4-10.5); CARBON DIOXIDE 31.2 mmol/L (20.0-32)
--- NOTE | 2018-08-23 15:11 | NUR ---
CRITICAL LAB VALUE CRITICAL LAB VALUE REPORTED TO DR OAKES AT THIS TIME.
[2018-08-23 15:12] LABS: ABG PH 7.379 (7.350-7.450); BE(B) 1.1 mmol/L (-2.0-2.0); HCO3act 26.5 mmol/L (22.0-26.0); pO2 75.9 mmHg (80.0-100.0)
[2018-08-23 16:00] VITALS: BP 171/73
--- NOTE | 2018-08-23 16:03 | NUR ---
ARISTIDES OAKES ON PHONE WITH DR IRVING REGARDING PT. DR IRVING REFUSES ADMISSION AT THIS TIME.
--- NOTE | 2018-08-23 16:07 | NUR ---
HARRIET OAKES ON PHONE WITH DR LARIOS AT THIS TIME REGARDING PT.
--- NOTE | 2018-08-23 16:10 | ER.PDOC ---
General Chief Complaint: Dyspnea/Respdistress Stated Complaint: DYSPNEA Time seen by MD: 16:00 Source: patient Exam Limitations: no limitations History of Present Illness Timing/Duration: 1 week Severity: moderate Activities at Onset: activity/exertion, rest Prior Episodes/Possible Cause: frequent episodes, chronic episodes Modifying Factors: improves with lying down, improves with oxygen, improves with rest Associated Symptoms: chest pain Prior symptoms/Treatment: Similar symptoms previous Allergies: Coded Allergies: No Known Allergies (Unverified , 09/23/16) Home Meds Active Scripts Potassium Chloride (POTASSIUM CHLORIDE) 20 Meq Tab.er.prt, 1 TAB PO DAILY, #30 TAB 4 Refills Prov:RORY MANNING MD 08/01/16 Furosemide (LASIX) 20 Mg Tablet, 40 MG PO DAILY, #30 4 Refills Prov:RORY MANNING MD 08/01/16 Reported Medications Nifedipine (NIFEDIPINE ER) 30 Mg Tab.er.24, 1 TAB PO HS, #90 TAB 1 Refill 09/17/17 Cetirizine Hcl (ZYRTEC) 10 Mg Tablet, 1 TAB PO DAILY, #30 TAB 2 Refills 09/17/17 Pantoprazole Sodium (PROTONIX) 40 Mg Tablet.dr, 1 TAB PO DAILY, #30 TAB 5 Refills 09/17/17 Multivitamin (MULTIVITAMINS) 1 Each Tablet, 1 TAB PO DAILY, #90 TAB 3 Refills 09/17/17 Metoprolol Succinate (METOPROLOL SUCCINATE) 50 Mg Tab.er.24h, 1 TAB PO HS, #30 TAB 5 Refills 09/17/17 Sitagliptin Phos/Metformin Hcl (JANUMET 50-500 MG TABLET) 1 Each Tablet, 1 TAB PO BID, #60 TAB 5 Refills 09/17/17 Insulin Detemir (LEVEMIR) 100 Unit/1 Ml Vial, 45 UNIT SQ HS, VIAL 07/03/17 Sacubitril/Valsartan (Entresto 49 mg-51 mg Tablet) 1 Each Tablet, 1 EACH PO HS, TABLET 07/03/17 Sacubitril/Valsartan (Entresto 49 mg-51 mg Tablet) 1 Each Tablet, 1 EACH PO DAILY24, TABLET 07/03/17 Aspirin (ASPIR 81) 81 Mg Tablet.dr, 2 TAB PO DAILY, #30 TAB 5 Refills 07/03/17 Vortioxetine Hydrobromide (Trintellix) 20 Mg Tablet, 20 MG PO HS, TABLET 06/02/17 Clopidogrel Bisulfate (PLAVIX) 75 Mg Tablet, 1 TAB PO DAILY, TAB 09/26/16 Zolpidem Tartrate (AMBIEN CR) 12.5 Mg Tab.mphase, 1 TAB PO HS, TAB 08/14/16 Rosuvastatin 20MG (CRESTOR 20MG) 20 Mg Tablet, 1 TAB PO HS, TAB 07/12/16 Glimepiride (GLIMEPIRIDE) 2 Mg Tablet, 1 TAB PO DAILY, TAB 07/12/16 Past Medical History Medical History: congestive heart failure, diabetes, hypertension Surgical History: gastric bypass, hip, knee, shoulder, other Social History Smoking: non-smoker Alcohol Use: none Drug Use: none Reviewed Nursing Reviewed: Vital Signs, Abn. 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 (08/23/18 14:11) Ekg-Routine (08/23/18 14:11) Furosemide (Lasix) (08/23/18 14:11) Nitroglycerin (Nitro-Dur 0.4mg Patch) (08/24/18 09:00) Morphine Sulfate (Morphine Sulfate) (08/23/18 14:16) Nitroglycerin (Nitro-Dur 0.4mg Patch) (08/23/18 14:34) Furosemide (Lasix) (08/23/18 14:34) Arterial Blood Gas (08/23/18 15:01) Vital Signs Date Time Temp Pulse Resp B/P (MAP) Pulse Ox O2 Delivery O2 Flow Rate FiO2 08/23/18 14:45 147/68 08/23/18 14:10 97.9 48 22 137/72 (93) 95 Room Air 97.9 08/23/18 13:57 97.9 48 22 97.9 08/23/18 13:57 97.9 50 22 95 Room Air 97.9 Administered Medications Medications (Trade) Dose Ordered Sig/Kelsi Route PRN Reason Start Time Stop Time Status Last Admin Dose Admin Furosemide (Lasix) 40 mg STAT STAT IV 08/23/18 14:11 08/23/18 14:13 DC 08/23/18 14:45 40 MG Nitroglycerin (Nitro-Dur 0.4mg Patch) 1 each DAILY TD 08/24/18 09:00 09/23/18 08:59 08/23/18 14:46 1 EACH Laboratory Tests Test 08/23/18 14:28 08/23/18 15:05 White Blood Count 7.7 10^3/uL (4.5-11.0) Red Blood Count 4.00 10^6/uL (4.50-5.90) L Hemoglobin 10.4 g/dL (13.9-16.3) L Hematocrit 33.5 % (37.0-53.0) L Mean Corpuscular Volume 83.8 fL (78-100) Mean Corpuscular Hemoglobin 26.0 pg (26-34) Mean Corpuscular Hemoglobin Concent 31.0 g/dL (33-37) L Red Cell Distribution Width 15.1 % (11.5-14.5) H Platelet Count 213 10^3/uL (150-400) Mean Platelet Volume 9.3 fL (7.8-11.0) Neutrophils (%) (Auto) 78.1 % (41.0-85.0) Lymphocytes (%) (Auto) 10.3 % (24.0-44.0) L Monocytes (%) (Auto) 8.3 % (5.0-12.0) Neutrophils # (Auto) 6.0 10^3/uL (1.8-7.7) Lymphocytes # (Auto) 0.8 10^3/uL (1.0-4.8) L Monocytes # (Auto) 0.6 10^3/uL (0.3-0.8) Absolute Immature Granulocyte (auto 0.07 10^3 u/L (0-2) Immature Granulocytes % 0.90 % (0.00-0.50) H Eosinophils % 2.3 % (0.0-5.0) Basophils % 0.1 % (0.0-0.2) Basophils # 0.0 10^3/uL (0.0-0.1) Eosinophil Count 0.2 10^3/uL (0.0-0.2) Prothrombin Time 10.3 SEC (9.8-11.9) Prothrombin Time INR (Non-Therap) 1.0 PTT 26.6 SEC (24.67-30.72) D-Dimer 1.19 mg/L (0.19-0.49) *H Sodium Level 144 mmol/L (132-145) Potassium Level 4.5 mmol/L (3.6-5.2) Chloride Level 106.0 mmol/L (96-109) Carbon Dioxide Level 31.2 mmol/L (20.0-32) Anion Gap 11.3 Blood Urea Nitrogen 45 mg/dL (7-18) H Creatinine 1.99 mg/dL (0.59-1.40) H Estimated GFR () 40.2 (>/=60) BUN/Creatinine Ratio 22.0 Glucose Level 60 mg/dL (70-110) L Calcium Level 8.9 mg/dL (8.4-10.5) Total Bilirubin 0.6 mg/dL (0.2-1.0) Aspartate Amino Transferase (AST) 16 U/L (0-35) Alanine Aminotransferase (ALT) 10 U/L (12-78) L Alkaline Phosphatase 67 U/L (50-136) Total Creatine Kinase 49 U/L (39-308) Troponin I 0.14 ng/mL (0.00-0.05) H Pro-B-Type Natriuretic Peptide 5848 pg/mL (0-125) H Total Protein 6.6 g/dL (6.4-8.2) Albumin 2.8 g/dL (3.4-5.0) L Globulin 3.8 Blood Gas Sample Site RT RADIAL ARTERY Blood pH 7.379 (7.350-7.450) Blood Gas PCO2 46.0 mmHg (35.0-45.0) H Blood Gas PO2 75.9 mmHg (80.0-100.0) L Blood Gas HCO3 26.5 mmol/L (22.0-26.0) H Blood Gas Base Excess 1.1 mmol/L (-2.0-2.0) Delmar Test POSITIVE Arterial Blood Oxygen Saturation 94.1 % (94.0-97.00) Deoxyhemoglobin 5.8 % (0.0-5.0) H Carboxyhemoglobin 1.4 % (0.0-3.9) Methemoglobin 0.3 % (0.00-5.0) Total Hemoglobin 10.7 % (12.0-17.8) L Total Oxygen Concentration 14.0 % (13.5-17.5) Lactic Acid (Blood Gas) 0.9 mmol/1 (0.50-2.0) FiO2 32 % (20-101) Bicarbonate 28.0 mmol/L (23-27) H EKG/XRAY/CT/US EKG: NSR, no ST T wave changes Consult/PCP Time Consult/PCP Called: 16:00 Consult/PCP: DR IRVING Course Sepsis Screening Results: Posi: POSITIVE SEPSIS RISK Sepsis Qualifier/Stage: NO DEFINITE RISK Duration or Total Time Spent w: 2 HRS Vitals & review Data Vital Sign - Last 24 Hours 08/23/18 08/23/18 08/23/18 08/23/18 13:57 13:57 14:10 14:45 Temp 97.9 97.9 97.9 97.9 97.9 97.9 Pulse 50 48 48 Resp 22 22 22 B/P (MAP) 137/72 (93) 147/68 Pulse Ox 95 95 O2 Delivery Room Air Room Air Laboratory Tests Test 08/23/18 14:28 08/23/18 15:05 White Blood Count 7.7 10^3/uL Red Blood Count 4.00 10^6/uL Hemoglobin 10.4 g/dL Hematocrit 33.5 % Mean Corpuscular Volume 83.8 fL Mean Corpuscular Hemoglobin 26.0 pg Mean Corpuscular Hemoglobin Concent 31.0 g/dL Red Cell Distribution Width 15.1 % Platelet Count 213 10^3/uL Mean Platelet Volume 9.3 fL Neutrophils (%) (Auto) 78.1 % Lymphocytes (%) (Auto) 10.3 % Monocytes (%) (Auto) 8.3 % Neutrophils # (Auto) 6.0 10^3/uL Lymphocytes # (Auto) 0.8 10^3/uL Monocytes # (Auto) 0.6 10^3/uL Absolute Immature Granulocyte (auto 0.07 10^3 u/L Immature Granulocytes % 0.90 % Eosinophils % 2.3 % Basophils % 0.1 % Basophils # 0.0 10^3/uL Eosinophil Count 0.2 10^3/uL Prothrombin Time 10.3 SEC Prothrombin Time INR (Non-Therap) 1.0 Activated Partial Thromboplast Time 26.6 SEC D-Dimer 1.19 mg/L Sodium Level 144 mmol/L Potassium Level 4.5 mmol/L Chloride Level 106.0 mmol/L Carbon Dioxide Level 31.2 mmol/L Anion Gap 11.3 Blood Urea Nitrogen 45 mg/dL Creatinine 1.99 mg/dL Estimated GFR () 40.2 BUN/Creatinine Ratio 22.0 Glucose Level 60 mg/dL Calcium Level 8.9 mg/dL Total Bilirubin 0.6 mg/dL Aspartate Amino Transf (AST/SGOT) 16 U/L Alanine Aminotransferase (ALT/SGPT) 10 U/L Alkaline Phosphatase 67 U/L Total Creatine Kinase 49 U/L Troponin I 0.14 ng/mL Pro-B-Type Natriuretic Peptide 5848 pg/mL Total Protein 6.6 g/dL Albumin 2.8 g/dL Globulin 3.8 Blood Gas Sample Site RT RADIAL ARTERY Blood Gas pH 7.379 Blood Gas PCO2 46.0 mmHg Blood Gas PO2 75.9 mmHg Blood Gas HCO3 26.5 mmol/L Blood Gas Base Excess 1.1 mmol/L [place]mar Test POSITIVE Arterial Blood Oxygen Saturation 94.1 % Deoxyhemoglobin 5.8 % Carboxyhemoglobin 1.4 % Methemoglobin 0.3 % Total Hemoglobin 10.7 % Total Oxygen Concentration 14.0 % Lactic Acid (Blood Gas) 0.9 mmol/1 FiO2 32 % Bicarbonate 28.0 mmol/L Current Medications Medications (Trade) Dose Ordered Sig/Kelsi PRN Reason Start Time Stop Time Status Last Admin Nitroglycerin (Nitro-Dur 0.4mg Patch) 1 each DAILY 08/24/18 09:00 09/23/18 08:59 08/23/18 14:46 Sepsis Infection Criteria Pres: None LEVEL 1 SEPSIS INFECTION CRITE: Cough/Shortness of Breath LEVEL 2-SIRS (LIST ALL THAT AP: None/Not assessed Cardiovascular Evidence: Not Assessed or None Hematologic Evidence: None/Not assessed Hepatic Evidence: None/Not assessed Metabolic Evidence: None/Not assessed Neurological Evidence: None/Not assessed Respiratory Evidence: Need for O2 to keep>90%, O2 SAT<90room air Renal Evidence: None/Not assessed O2 Sat by Pulse Oximetry: 95 Departure Time of Disposition: 16:33 Disposition: 01 HOME, SELF-CARE Impression: Primary Impression: Congestive heart failure Condition: Improved Referrals: SHANNEN GARCÍA MD (PCP) PRIMARY CARE PROVIDER Duration or Time Spent with Pa: 2 HRS GIA OAKES MD Aug 23, 2018 16:10
--- NOTE | 2018-08-23 16:29 | NUR ---
[facility] DR OAKES ON PHONE WITH [facility] TRANSFER LINE AND HOSPITALIST.
[2018-08-23 17:00] VITALS: BP 152/62
[2018-08-23 18:00] VITALS: BP 148/71
--- NOTE | 2018-08-23 18:03 | NUR ---
[facility].
[2018-08-23 18:46] VITALS: BP 140/76
--- NOTE | 2018-08-23 18:49 | NUR ---
REPORT REPORT TO [facility] ER.
--- NOTE | 2018-08-23 18:56 | NUR ---
[facility] TO TRAN[facility] PT TO [facility].
[2018-08-23 19:04] VITALS: BP 140/76
[2018-08-24] MEDS ORDERED: NITRO-DUR 0.4MG PATCH TD SCH (09:00)
== END 2018-08-23 18:56 | disposition home or self-care (01) ==
LOC: ER 13:57 → EDBD 13:57 → ER 18:56
DX: I11.0 Hypertensive heart disease with heart failure (principal); I50.9 Heart failure, unspecified; E11.9 Type 2 diabetes mellitus without complications; Z79.4 Long term (current) use of insulin; Z79.82 Long term (current) use of aspirin; Z79.899 Other long term (current) drug therapy; Z98.84 Bariatric surgery status
CPT/HCPCS: 36415; 36600; 71045; 80053; 82550; 82803; 83880; 84484; 85025; 85379; 85610; 85730; 87040 ×2; 93005; 96374; 99285; J1940